=== PATIENT | female | born 1940 | race Caucasian/White ===

== ENCOUNTER → 2023-11-11 10:27 | Outpatient (REF) | payer OTHER, SELFPAY ==
[2023-11-11 12:15] LABS: % Basophils 0.8 % (0-2); % Eosinophils 1.7 % (0-6); % Immature Granulocytes 0.3 % (0-0.5); % Lymphocytes 27.2 % (20.5-51.1); % Monocytes 9.6 % (1.7-9.3); % Neutrophils 60.4 % (42.2-75.2); Absolute Basophils 0.1 10^3/uL (0-0.2); Absolute Eosinophils 0.1 10^3/uL (0-0.7); Absolute Lymphocytes 2.1 10^3/uL (1.2-3.4); Absolute Monocytes 0.7 10^3/uL (0.1-0.6); Absolute Neutrophils 4.7 10^3/uL (1.4-6.5); Hematocrit 37.9 % (37.0-47.0); Hemoglobin 12.7 g/dL (12.0-16.0); Mean Corp Hgb Conc. 33.5 g/dL (33.0-37.0); Mean Corpuscular Volume 89.4 fL (81.0-99.0); Nucleated Red Blood Cells % 0 %; Platelet Count 292 10^3/uL (130-400); Red Blood Cell Count 4.24 10^6/uL (4.20-5.40); White Blood Cell Count 7.7 10^3/uL (4.8-10.8)
[2023-11-11 12:46] LABS: ALT (SGPT) 40 U/L (0-35); AST (SGOT) 37 U/L (14-36); Albumin 3.8 g/dl (3.5-5.0); Alkaline Phosphatase 159 U/L (38-126); Blood Urea Nitrogen 14 mg/dl (7-17); Calcium 9.5 mg/dl (8.4-10.2); Carbon Dioxide 28 mmol/L (22-30); Chloride 105 mmol/L (98-107); Glucose 88 mg/dl (70-99); HDL Cholesterol 65 mg/dl; Iron 77 ug/dl (37-170); LDL Cholesterol, Calculated 71 mg/dl; Potassium 4.4 mmol/L (3.5-5.1); Sodium 137 mmol/L (135-145); Total Cholesterol 170 mg/dl (50-199); Total Protein 6.8 g/dl (6.3-8.2); Triglyceride 172 mg/dl (10-149); Very Low Density Lipoprotein 34 mg/dl (0-30); eGFR > 60.00
[2023-11-11 12:55] LABS: Percent Saturation 25 % (20-50); Total Iron Binding Capacity 301 ug/dl (265-497)
[2023-11-11 13:02] LABS: Vitamin D, 25-OH*** 63.2 ng/mL (30-80)
[2023-11-11 13:15] LABS: TSH Reflex To Free T4 0.65 uIU/ml (0.47-4.68)
== END ==
LOC: HWLAB 10:27
PROVIDERS: ATTENDING PHYSICIAN Nurse Practitioner Family
DX: Z76.89 Persons encountering health services in other specified circumstances (principal); Z00.00 Encounter for general adult medical examination without abnormal findings; E56.9 Vitamin deficiency, unspecified; I10 Essential (primary) hypertension; E78.2 Mixed hyperlipidemia; K21.9 Gastro-esophageal reflux disease without esophagitis; M81.0 Age-related osteoporosis without current pathological fracture; Z87.81 Personal history of (healed) traumatic fracture; E66.9 Obesity, unspecified; Z86.2 Personal history of diseases of the blood and blood-forming organs and certain disorders involving the immune mechanism
CPT/HCPCS: 36415; 80053; 80061; 82306; 82728; 83540; 83550; 84443; 85025

== ENCOUNTER 2023-11-18 01:52 | Observation (INO) | payer OTHER, SELFPAY ==
[2023-11-17] VITALS (7 sets, daily range): BP systolic 93–182; BP diastolic 65–136; BMI 31.3
[2023-11-17 20:02] LABS: % Immature Granulocytes 0.2 % (0-0.5); % Lymphocytes 30.4 % (20.5-51.1); % Monocytes 10.9 % (1.7-9.3); % Neutrophils 55.5 % (42.2-75.2); Absolute Basophils 0.1 10^3/uL (0-0.2); Absolute Eosinophils 0.2 10^3/uL (0-0.7); Absolute Lymphocytes 2.5 10^3/uL (1.2-3.4); Absolute Monocytes 0.9 10^3/uL (0.1-0.6); Absolute Neutrophils 4.5 10^3/uL (1.4-6.5); Hemoglobin 12.6 g/dL (12.0-16.0); Mean Corp Hgb Conc. 34.1 g/dL (33.0-37.0); Mean Corpuscular Hgb 30.1 pg (27.0-31.0); Mean Corpuscular Volume 88.3 fL (81.0-99.0); Mean Platelet Volume 8.6 fL (7.4-10.4); Nucleated Red Blood Cells % 0 %; Platelet Count 303 10^3/uL (130-400); Red Blood Cell Count 4.19 10^6/uL (4.20-5.40); Red Cell Dist. Width 13.8 % (11.5-14.5); White Blood Cell Count 8.2 10^3/uL (4.8-10.8)
[2023-11-17 20:17] LABS: ALT (SGPT) 31 U/L (0-35); AST (SGOT) 31 U/L (14-36); Alkaline Phosphatase 160 U/L (38-126); Blood Urea Nitrogen 22 mg/dl (7-17); Calcium 9.6 mg/dl (8.4-10.2); Carbon Dioxide 27 mmol/L (22-30); Chloride 103 mmol/L (98-107); Glucose 101 mg/dl (70-99); Potassium 4.3 mmol/L (3.5-5.1); Sodium 137 mmol/L (135-145); Total Bilirubin 0.5 mg/dl (0.2-1.3); Total Protein 7.1 g/dl (6.3-8.2); eGFR > 60.00
[2023-11-17 20:26] LABS: Troponin I < 0.012 ng/ml
--- NOTE | 2023-11-17 22:00 | ED.GENMED ---
History of Present Illness
General
Chief Complaint: Dizziness
Source: patient
Exam Limitations: none
Time Seen by Provider: 11/17/23 21:57
Travel History
Have you had any contact with someone who has COVID-19?: No
Do you have any symptoms of coronavirus? Fever > 100 degrees, chills, cough, shortness of breath, sore throat, loss of taste or smell, muscle aches, or headache?: No
History of Present Illness
History of Present Illness:
This is a 83 year old female that comes in with c/o dizziness. States that when she awoke this morning and went to get up she felt like the room was spinning. States that she laid back down and fell back to sleep. Daughter states that she has been
sleepy today and did not get up until about 11:30am. Patient states that when she got up again she was still dizzy and she stayed dizzy all da6y. States that the room is spinning. States that this happened when she sat up in CT scan and when she
sait up in bed. Denies any fever, chills, chest pain, SOB, abd pain, nasuea, vomiting, diarrhea, headache, urinary burning.
Past History
Past History
ED Past Medical History: Cancer (Bladder CA), GERD, HTN, Hypercholesterolemia and Other (PE/DVT)
ED Past Surgical History: Orthopedic (Right rotator cuff, Right femur repair, ) and Tonsilectomy
Social History
Tobacco: Former smoker (1/2ppd)
Alcohol: None
Drug: None
Personal:
Living: with family
Review of Systems
Review of Systems
All Other Systems: ROS reviewed and negative except as documented in HPI and ROS
Constitutional: Reports no symptoms; Denies fever or chills
EENT: Reports no symptoms
Respiratory: Reports no symptoms; Denies cough or trouble breathing
Cardiac: Reports no symptoms; Denies chest pain
ABD/GI: Reports no symptoms; Denies abdominal pain, nausea, vomiting or diarrhea
: Reports no symptoms; Denies dysuria, frequency or urgency
Musculoskeletal: Reports no symptoms
Skin: Reports no symptoms
Neurological: Reports dizzy; Denies headache
Psychiatric: Reports no symptoms
Phy Exam
General Physical Exam
General Presentation: well appearing and no apparent distress
General age: appears stated age
General Skin: warm and dry
General Habitus: elderly
General Mental: alert
General Hydration: appears well hydrated
ENT Exam
ENT Exam: TM's normal, pharynx normal and neck supple
Eye Exam
Eye Exam: PERRL and EOMI
Cardiovascular Exam
Cardiovascular Exam: regular rate/rhythm, no edema, no murmur and normal peripheral pulses
Pulmonary Exam
Pulmonary Exam: lungs clear, no respiratory distress, no rales, chest non tender, no crackles, no rhonchi, no wheezing and no cough
Gastrointestinal Exam
Gastrointestinal Exam: normal bowel sounds, non tender, soft, no organomegaly, no pulsatile mass and non distended
NIH Stroke Score
Level of Consciousness: 0 - Alert
LOC questions: 0-Answers both correctly
LOC Commands: 0-Performs both correctly
Best Gaze: 0-Normal
Visual [place]: 0=Normal, no visual loss
Facial palsy: 0=Normal, symmetrical
Motor - Right Arm: 0=No drift 10 seconds
Motor - Left Arm: 0=No drift 10 seconds
Motor - Right Le-No drift 5 seconds
Motor - Left Le-No drift 5 seconds
Limb Ataxia: 0-Absent
Sensation: 0-Normal
Best Language: 0-No aphasia
Dysarthria: 0-Normal
Extinction and Inattention: 0-No abnormality
Total Score:: 0
Musculoskeletal Exam
Musculoskeletal Exam: no edema and other (Hand grasp and push pulls equal, Limited ROM on the right leg due to recent femur repair)
Skin Exam
Skin Exam: normal color, warm/dry, no rash and no petechia
Psychiatric Exam
Psychiatric Exam: normal mood/affect
Course
Orders/Labs/Results
Orders:
Orders
11/17/23 19:36
Electrocardiogram (*1) Urgent
Reason for Study: Fatigue / Weakness
11/17/23 19:37
EKG- Treatment ONCE
11/17/23 19:[address] [CT Head W/o Iv Contrast] Urgent
Comment:
Reason For Exam: dizziness weakness
11/17/23 19:52
Troponin I Urgent
11/17/23 19:53
CMP [Comprehensive Metabolic Panel] Urgent
Complete Blood Count/With Diff Urgent
11/17/23 22:25
0.9% Sodium Chloride 1000 ml [Nss] 1,000 ml IV BOLUS
Meclizine [Antivert] 25 mg PO NOW STA
11/17/23 22:29
Orthostatic VS- Treatment ONCE
11/17/23 23:19
COVID-19 Antigen Urgent
Source: Nasal Swab
Urinalysis Reflex To Culture Urgent
Date Specimen was Collected: 11/17/23
Time Specimen was Collected: 23:10
Urine Microscopic Reflex Cult Urgent
Urine Culture Urgent
LINDA Source: U
Specimen Description:
Date Specimen was Collected: 11/17/23
Time Specimen was Collected: 23:10
Abnormal Lab Results
11/17/23 11/17/23
19:53 23:19
RBC 4.19 L 10^6/uL
(4.20-5.40)
Absolute Monos (auto) 0.9 H 10^3/uL
(0.1-0.6)
Monocytes % 10.9 H %
(1.7-9.3)
BUN 22 H mg/dl
(7-17)
Glucose 101 H mg/dl
(70-99)
Alkaline Phosphatase 160 H U/L
(38-126)
Leukocyte Esterase Rfl 2+ A
(Negative)
Urine WBC (Reflex) 26-30 A /HPF
(0-5)
Urine Bacteria (Reflex) Moderate A
(Negative)
11/17/23 19:53
11/17/23 19:53
Dehydration. Glucose nonfasting Alk phos elevation. Troponin<0.012
Second Troponin <0.012, Urine contaminated. Would wait for culture to treat.
Vital Signs
Initial and Last Documented VS:
Initial Vital Signs
Temp Pulse Resp BP Pulse Ox
98.2 F 88 20 142/67 97
11/17/23 19:30 11/17/23 19:30 11/17/23 19:30 11/17/23 19:30 11/17/23 19:30
Last Documented Vital Signs
Temp Pulse Resp BP Pulse Ox
98.4 F 83 19 134/63 98
11/17/23 23:00 11/18/23 00:00 11/18/23 00:00 11/18/23 00:00 11/18/23 00:00
MDM/Problems Addressed
Differential Diagnosis Includes:
Vertigo, Dehydration, UTI
MDM/Problems Addressed:
This is a 83 year old female that comes in with c/o dizziness. States that she awoke this morning and went to sit up and was dizzy. states that she laid back down and went back to sleep. States that when she got up later she was still dizzy and has
been dizzy all day.
Will check labs, CT head, Urine, IV fluids and COVID.
Back into see patient and daughter. Patient was unable to do Orthostatics due to the dizziness. Will admit patient. Patient already has a healing fracture from a fall on the right leg. Will need further evaluation. Hospitalist notified.
Chronic conditions affecting care:
NA
Acute Exacerbation and/or Progression of Chronic Illness:
NA
*Radiology
Radiology exam reviewed: radiology read reviewed (CT head-No acute intracranial abnormalities. Findings compatible with diffuse cortical atrophy with nonspecific white matter changes as described. )
*Pulse Oximetry
Patient hypoxic: no
*EKG
Interpreted by ED Provider?: Yes
Heart Rate: 87
Rate: normal
Rhythm: sinus
[place]: left axis deviation
Interval: normal interval
QRS Pattern: normal QRS
Ischemia: no ischemia
*Critical Care Note
Total Time (30-74mins, 75-104mins- exclusive of procedures): Not Applicable
ED Attending Note
-
Portions of this chart may have been created with voice recognition software.� Occasional wrong word or��sound alike� substitutions may have occurred due to the inherent limitations of voice recognition software.
Discharge Plan
Departure
Patient Disposition: Admit
Date of Disposition: 11/18/23
Time of Disposition: 00:30
Admit to: Telemetry
Presentation/result/management discussed w/ accepting MD/DO: Hospitalist
Patient with high blood pressure during this ER visit?: Yes
Condition: Good
Covid-19: Not Applicable
Discharge Problem:
Dizziness
Prescriptions:
No Action
cholecalciferol (vitamin D3) [Vitamin D3] 25 mcg (1,000 unit) Tablet
50 mcg PO DAILY Qty: 0
famotidine 20 mg Tablet
20 mg PO HS Qty: 0
calcium citrate [Citracal] 200 mg (950 mg) Tablet
200 mg PO DAILY Qty: 0
Myrbetriq 25 mg Tablet Extended Release 24 Hr
25 mg PO DAILY Qty: 0
pravastatin 40 mg tablet
40 mg PO HS
multivitamin Tablet
1 tab PO DAILY
amlodipine 5 mg tablet
5 mg PO DAILY
Referrals:
Alejandra Miramontes CRNP [Family Provider] -
Interventions
Interventions:
*Risk Screen - Suicide Last Done: 11/17/23 19:30
*General Assessment Last Done: 11/17/23 19:30
*Neglect/Abuse Screening Last Done: 11/17/23 19:30
ED- Fall Risk Assessment Last Done: 11/17/23 19:30
*ED COVID-19 Vaccine History Last Done: 11/17/23 19:30
ED- Neurological Assessment Last Done: 11/17/23 23:14
ED- Cardiac Assessment Last Done: 11/17/23 23:14
ED Swallowing Screen Last Done: 11/17/23 22:35
[2023-11-17] MEDS: NSS 1000 IV (22:30)
[2023-11-17] MEDS: ANTIVERT 25 MG PO (22:37)
[2023-11-17 23:30] LABS: Urine Albumin Negative (Neg - Trace); Urine Bilirubin Negative (Negative); Urine Character Clear (Clear); Urine Color Yellow; Urine Glucose Negative (Negative); Urine Ketone Negative (Negative); Urine Leukocyte 2+ (Negative); Urine Nitrite Negative (Negative); Urine Occult Blood Negative (Negative); Urine Urobilinogen Negative (Neg - 1+)
[2023-11-17 23:35] LABS: COVID-19 Antigen Negative (Negative)
[2023-11-17 23:56] LABS: Urine Squamous Cell >30 /LPF (Few)
[2023-11-17 23:58] LABS: Urine Bacteria Moderate (Negative); Urine Red Blood Cell 0-2 /HPF (0-2); Urine White Cell 26-30 /HPF (0-5)
[2023-11-18] VITALS (12 sets, daily range): BP systolic 114–163; BP diastolic 51–76; PULSE 78–81; O2SAT 95; BMI 32.3; BMI 31.1
--- NOTE | 2023-11-18 00:50 | HPS.HSE ---
Family Physician
-
Family Physician: RACHEL Ordoñez
Chief Complaint
-
Dizziness
History of Present Illness
83-year-old female who recently moved to be with her daughter, with history of some mild GERD, hypertension and recent right hip fracture status post ORIF. Presented to the hospital for evaluation of dizziness and vertigo, she states she woke up
this morning was extremely dizzy with any kind of movement activities, no weakness or numbness in extremities.
No headache or vision change.
No sick contacts or recent travel. No known medication change. Laying flat or sitting down resolved her symptoms, admit nausea but no vomiting.
She provide limited information but daughter at the bedside provide most of the information. Denies any weakness or numbness in extremities, no chest pain or palpitation or any vomiting.
Look like she was just discharged from home PT OT after hip fracture.
She has been having some urinary incontinent and look like start on mirabegron recently. Workup in the ER so far negative other than evidence of urinary tract infection.
Given meclizine in the ER.
Medical History
Past Medical History
Past Medical History: Reports Other
Additional Past Medical History:
Past medical history Reviewed:
Hypertension
Hyperactive bladder
GERD
Recent ORIF right hip
Social history: Ex-smoker, no alcohol use, ambulates with a walker.
Family history: Reviewed and noncontributory
Past Surgical History: Reports Other
Social History
Unable to obtain full social history at this time due to: Other
Family History
Family History: Other
Allergies / Home Medications
Allergies reflects when Allergies were last updated in [facility] [employer] [employer].
Home Medications with original date entered in [employer] [facility] [facility]
Allergy/Medication List:
Allergies
Allergy/AdvReac Type Severity Reaction Status Date / Time
morphine Allergy Hives Verified 11/17/23 19:29
Sulfa (Sulfonamide Allergy Rash Verified 11/17/23 19:29
Antibiotics)
Home Medications
calcium citrate 200 mg (950 mg) tablet 200 mg PO DAILY Supplement ##0 09/08/23
cholecalciferol (vitamin D3) 25 mcg (1,000 unit) tablet (Vitamin D3) 50 mcg PO DAILY Supplement ##0 09/08/23
famotidine 20 mg tablet 20 mg PO HS ##0 09/08/23
mirabegron 25 mg tablet,extended release 24 hr (Myrbetriq) 25 mg PO DAILY Urinary Issue ##0 09/08/23
amlodipine 5 mg tablet 5 mg PO DAILY 11/17/23
multivitamin 1 tab PO DAILY 11/17/23
pravastatin 40 mg tablet 40 mg PO HS 11/17/23
Review of Systems
-
A 12 point ROS was completed and negative except as noted: Yes
Physical Exam
Vital Signs
Vital Signs
Temp Pulse Resp BP Pulse Ox
98.4 F 83 19 134/63 98
11/17/23 23:00 11/18/23 00:00 11/18/23 00:00 11/18/23 00:00 11/18/23 00:00
Physical exam:
General: Awake, alert and oriented x3, not in distress and holds appropriate conversation.
HEENT: No active discharge, ecchymosis or bruising, moist lips, tongue and mucous membrane.
Eyes: No discharge or red conjunctiva, no nystagmus, pupils are reactive and equal
Neck:Supple, no JVD no bruit no goiter.
Respiratory: Normal AP contour and diameter, normal chest wall movement, normal respiratory effort, no respiratory distress,
Lungs: Good air entry bilaterally, no wheezing or rhonchi, no rales or crackles
Heart: S1, S2 regular, normal rate, no added sound.
Gastrointestinal: Positive bowel sounds, soft, nontender, no guarding or rigidity or organomegaly
Musculoskeletal: , no chest wall abnormality or tenderness. All joints and extremities have good range of motion, no muscle tenderness or any joint swelling or tenderness.
Extremities: No pitting edema, good peripheral pulses, good range of motion
Skin: Warm and dry, no ulceration, normal color.
Neurological: Awake, alert and oriented x3, cranial nerve II-XII grossly intact, speech clear and comprehensive, good muscle tone, normal sensory and motor function in the left extremity, right upper extremities motor and sensation intact, right
lower extremity abnormal sensation but limited movement because of the recent hip fracture and surgery., speech clear and comprehensive, extraocular muscle movement intact, visual acuity and dennison intact, no nystagmus,
Psychiatric: Normal mood, normal thought and judgment, normal affect,
Physical Exam
General: Other
Laboratory Results
-
11/17/23 19:53
11/17/23 19:53
Laboratory Results
Total Bilirubin 0.5 mg/dl (0.2-1.3) 11/17/23 19:53
AST 31 U/L (14-36) 11/17/23 19:53
ALT 31 U/L (0-35) 11/17/23 19:53
Alkaline Phosphatase 160 U/L (38-126) H 11/17/23 19:53
Troponin I < 0.012 ng/ml 11/17/23 19:52
CT brain:
No acute intracranial abnormalities.
Findings compatible with diffuse cortical atrophy with nonspecific white matter changes as described above.
EKG: Showed normal sinus rhythm rate around 97, SD 134, QTc 433 otherwise normal EKG normal axis
Data Reviewed
-
Diagnostic Radiology: Image Personally Visualized and interpreted, Discussed with Patient and Discussed with Family
Medical Tests (Nuc Med, Echo, EKG etc): Image Personally Visualized and interpreted, Discussed with Patient and Discussed with Family
Lab Data: Labs Reviewed by me and Discussed with Family
Old Records: Reviewed
Impression/Plan
-
IMPRESSION:
83-year-old female brought to the hospital for evaluation of dizziness, can concerning for peripheral benign positional vertigo while other causes like TIA or stroke or cardiac arrhythmia or posterior circulation insufficiency may need to be
considered also UTI could be another culprit.
Dizziness and vertigo, concerning for benign positional vertigo
TIA or stroke made considered to be ruled out
Cardiac arrhythmia could be a possibility
Posterior circulation deficiency could be a possibility
UTI
Mild cognitive decline
GERD
Hypertension
Dyslipidemia
Recent right hip fracture
PLAN:
Data:
MRI and MRA head and neck
Add aspirin
Statin
Hold amlodipine as a pressure on the low normal side to keep trying to rule out a stroke
PT OT, PT for vestibular
IV fluid
Check lipid panel, A1c
IV Rocephin could be de-escalated pending culture and sensitivity
All discussed with the patient and her daughter and expressed understanding
CODE STATUS full code
DVT prophylaxis Lovenox
[2023-11-18] MEDS: NSS 1000 IV (02:37)
[2023-11-18] MEDS: PEPCID 20 MG PO ×2 (02:38→21:27)
[2023-11-18] MEDS: ROCEPHIN 1000 MG IV ×2 (02:38→21:27)
[2023-11-18] MEDS: STERILE WATER FOR INJECTION 10 ML IV ×2 (02:49→21:28)
[2023-11-18 06:03] LABS: Blood Urea Nitrogen 16 mg/dl (7-17); Calcium 9.3 mg/dl (8.4-10.2); Carbon Dioxide 27 mmol/L (22-30); Chloride 108 mmol/L (98-107); Estimated Creatinine Clearance 68 ml/min; Glucose 98 mg/dl (70-99); HDL Cholesterol 66 mg/dl; LDL Cholesterol, Calculated 73 mg/dl; Magnesium 2.1 mg/dl (1.6-2.3); Potassium 4.2 mmol/L (3.5-5.1); Sodium 141 mmol/L (135-145); Total Cholesterol 161 mg/dl (50-199); Triglyceride 112 mg/dl (10-149); Very Low Density Lipoprotein 22 mg/dl (0-30); eGFR > 60.00
[2023-11-18] MEDS: LOW STRENGTH ASPIRIN 81 MG PO (08:06)
[2023-11-18 08:56] LABS: Glycohemoglobin (HgbA1c) 5.5 % (4.0-5.6)
[2023-11-18] MEDS: MYRBETRIQ EXTENDED RELEASE 25 MG PO (10:01)
--- NOTE | 2023-11-18 10:50 | CM ---
CM met with patient in room. HOWE letter given and explained.
CM confirmed demographics. Patient lives with daughter in a two story home. Patient has a history of VN after placement at [place], but she cannot remember the name of the agency. Patient relies on a cane and walker for ambulation. Patient is active
with her PCP. Patient uses [facility] for medication services.
CM will await PT recommendations for further discharge planning efforts.
PLAN: Pending PT eval.
--- NOTE | 2023-11-18 11:58 | PTOTSP ---
SPEECH THERAPY SWALLOW EVALUATION:
Patient presents with oropharyngeal swallow function grossly WFL at this time. However, patient remains at risk for aspiration given possible acute CVA (MRI pending) and suboptimal positioning secondary to dizziness. Recommend Regular texture diet,
thin liquids. Medications whole with liquid. Aspiration precautions: As upright as able/tolerated positioning; small sips/bites; slow rate of intake. ST to follow up x1, assess diet tolerance and modify as appropriate, provide education regarding
aspiration risks/precautions, and monitor MRI and complete full speech/language/cognitive communication evaluation if indicated.
RECOMMEND:
1) Regular texture diet, thin liquids
2) Medications whole with liquid
3) Aspiration precautions: As upright as able/tolerated positioning; small sips/bites; slow rate of intake
4) ST to follow up x1, assess diet tolerance and modify as appropriate, provide education regarding aspiration risks/precautions, and monitor MRI and complete full speech/language/cognitive communication evaluation if indicated
--- NOTE | 2023-11-18 12:00 | PTCARENOTE ---
Received pt from ER.Pt awake, alert and oriented x3. Pt c/o dizziness with movement, even turning in bed, no nausea or vomiting at this time. Pt VSS 95% on RA. Pt NSR on tele. In ER Pts NIH recorded as ). Right leg not tested due to right hip
fracture with surgery and known weakness. Pt able to move leg tested and does drift down to bed, score 2 based on Right leg being tested. Otherwise assessment unchanged. Pt oriented to room, call sullivan within reach, plan of care ongoing.
--- NOTE | 2023-11-18 13:25 | W.PN.UPDATE ---
Update Note
Progress Note Update
Admitted with new onset of vertigo.
Patient's remained symptomatic care with vertigo which gets precipitated with movement of her body-like sitting up or standing up.
No headache.
No limb weakness.
No tremors.
No spontaneous nystagmus noted at rest.
Ongoing evaluation-MRI of the brain pending. Started on antibiotics for symptomatic treatment. Consult PT.
Check orthostatic vital signs.
[2023-11-18] MEDS: ANTIVERT 25 MG PO ×2 (15:09→21:27)
[2023-11-18] MEDS: LOVENOX 40 MG SC (17:25)
[2023-11-18] MEDS: PRAVACHOL 40 MG PO (21:27)
[2023-11-19] VITALS (8 sets, daily range): BP systolic 121–162; BP diastolic 53–81; PULSE 73–81
[2023-11-19] MEDS: ANTIVERT 25 MG PO ×3 (06:17→21:09)
[2023-11-19] MEDS: LOW STRENGTH ASPIRIN 81 MG PO (09:23)
[2023-11-19] MEDS: MYRBETRIQ EXTENDED RELEASE 25 MG PO (09:23)
--- NOTE | 2023-11-19 11:06 | W.PN.HOSP.TC ---
Today's Communication/Plan
-
Follow MRI brain
Assessment / Plan
Assessment / Plan
IMPRESSION:
83-year-old female brought to the hospital for evaluation of vertigo
Dizziness and vertigo -acute onset. Significant symptoms when sitting up and standing but not at rest or with head movements. No spontaneous nystagmus. No past-pointing. No motor deficit. CT head is negative for acute findings. Concerned about
a central process. Await MRI of the brain. Continue with symptomatic treatments with Antivert. Patient could not participate with PT due to symptoms. Continue with aspirin for now.
Difficult to do orthostatics with her symptoms-lying and sitting readings this showed no drop in blood pressure. No extrarenal losses of fluid losses.
Positive UA but with lot of squamous cells noted raising suspicion for contamination. She is also asymptomatic without dysuria frequency. I doubt UTI. Hold on abx. DC abx.
Mild cognitive decline
GERD -cw home meds
Hypertension- cw home meds
Dyslipidemia-cw statins
Recent right hip fracture
CODE STATUS full code
DVT prophylaxis Lovenox
Anticipated Discharge: > 48 hours
Subjective/Interval History
-
Date of Service: November 19, 2023
Persistent vertigo when she tries to sit or stand. Not much with head movements. Not noticed when she is in the bed.
No new associated symptoms.
Objective Data
-
Vital Signs:
Vital Signs
Temp Pulse Resp BP Pulse Ox
98.2 F 73 18 135/66 96
11/19/23 08:58 11/19/23 08:58 11/19/23 08:58 11/19/23 08:58 11/19/23 08:58
I&O
11/18/23 11/19/23 11/20/23
06:59 06:59 06:59
Intake Total 1000 / 1000 720 / 720
Output Total 900 / 900
Balance 100 / 100 720 / 720
Review of Systems
-
Respiratory: Denies Trouble Breathing
Cardiac: Denies Chest Pain
Abdomen/GI: Denies Abdominal Pain, Nausea or Vomiting
Neuro: Reports Dizzy; Denies Headache
Physical Exam
-
General: No Apparent Distress
HEENT: Moist Mucous Membranes
Respiratory: Clear to Auscultation
Cardiac: Regular Rhythm and S1/S2
Neuro: AO x 3, No Motor Deficits and Other (No spontaneous nystagmus); Negative Tremors, Slurred Speech or Facial Droop
Psych: Calm; Negative Confused or Agitated
[2023-11-19] MEDS: NORVASC 5 MG PO (11:49)
--- NOTE | 2023-11-19 16:27 | CM ---
Patient seen bedside, discussed PT recommedation of SNF. Patient unsure if she would like to go to SNF, requesting call to daughter. Patient reports she has been to [facility] in past. CM will call patients daughter to discuss recommendations. CM
will continue to follow for discharge planning needs.
Plan; SNF pending accepting facility, will require insurance auth.
[2023-11-19] MEDS: LOVENOX 40 MG SC (17:07)
--- NOTE | 2023-11-19 17:51 | W.PN.ENT ---
Today's Communication
-
patient seen at bedside
Impression / Plan
-
Probable benign positional vertigo given history
Jeff Hallpike test negative possibly indicating early resolution
counselled patient to keep head elevated in bed, avoid lying on right side
I can see patient in office if problems recur
Subjective Data
-
asked to see patient for severe vertigo for 2 days
vertigo activated when turns to right side to situp
Objective Data
-
Vital Signs
Temp Pulse Resp BP Pulse Ox
98.7 F 76 16 149/76 97
11/19/23 15:37 11/19/23 15:37 11/19/23 15:37 11/19/23 15:37 11/19/23 11:10
Intake & Output
11/18/23 11/19/23 11/20/23
06:59 06:59 06:59
Intake:
Oral fluids 720 / 720 240 / 240
IV fluids (Total) 1000 / 1000
nss 1000 / 1000
Output:
Urine, Voided 900 / 900 250 / 250
Other:
Number of approximated MODERATE 3 3
amounts of urine
Number of approximated LARGE 3
amounts of urine
How many times incontinent 1
SATURATED amount urine
Lab Results
11/17/23 19:53
11/18/23 05:19
Calcium 9.3 mg/dl (8.4-10.2) 11/18/23 05:19
Magnesium 2.1 mg/dl (1.6-2.3) 11/18/23 05:19
Total Bilirubin 0.5 mg/dl (0.2-1.3) 11/17/23 19:53
AST 31 U/L (14-36) 11/17/23 19:53
ALT 31 U/L (0-35) 11/17/23 19:53
Alkaline Phosphatase 160 U/L (38-126) H 11/17/23 19:53
Triglycerides 112 mg/dl (10-149) 11/18/23 05:19
LDL Cholesterol, Calc 73 mg/dl 11/18/23 05:19
VLDL Cholesterol, Calc 22 mg/dl (0-30) 11/18/23 05:19
HDL Cholesterol 66 mg/dl 11/18/23 05:19
Urine Color Yellow 11/17/23 23:19
Urine Clarity Clear (Clear) 11/17/23 23:19
Urine pH 7.0 (5.0-9.0) 11/17/23 23:19
Ur Specific Kyle 1.010 (<1.030) 11/17/23 23:19
Urine Ketones Negative (Negative) 11/17/23 23:19
Physical Exam
-
[place] Hallpike test negative- no nystagmus
ears clear
Chest: Clear
Respiratory: Clear
Data Reviewed
-
Radiology Results: Report Reviewed
[2023-11-19] MEDS: PEPCID 20 MG PO (19:27)
--- NOTE | 2023-11-19 19:37 | CON.MD ---
Consultation - Medical
-
Chief complaint: Vertigo
History of present illness: This patient is an 83-year-old woman who presents with a 2-day history of vertigo that she notes particularly when she sits up and when she rolls onto her right side initially to sit up. She has not noted significant
change in her hearing. She has not had head trauma recently. She is not having problems currently lying down. She has no ear pain or drainage from the ears. She had an MRI scan which showed normal mastoid cavities. There is no significant
evidence of sinusitis.
Past medical history:
Chronic illnesses:
Fracture of right hip, dizziness, hypercholesterolemia, acid reflux, osteoporosis, hypertension
Allergies: Morphine causes hives, sulfa medications caused a rash
Home medications: Amlodipine 5 mg p.o. daily
Calcium citrate 200 mg p.o. daily
Cholecalciferol 50 mcg p.o. daily
Famotidine 20 mg p.o. daily
Myrbetriq 25 mg p.o. daily
Multivitamin 1 p.o. daily
Pravastatin 40 mg p.o. nightly
Hospitalizations: The patient is currently hospitalized for vertigo and was recently hospitalized for a right hip fracture
Family history: Asked and is noncontributory for this problem
Past surgical history: The patient recently underwent repair of a right hip fracture
Review of systems: Positive for vertigo, positive for healing hip fracture, negative for chest pain, negative for abdominal pain, negative for respiratory distress, negative for change in hearingPhysical examination:
Head: Atraumatic and normocephalic
Eyes: Extraocular movements are intact and pupils are equal and reactive to light, no nystagmus was seen:
Ears: No significant cerumen impactions, fluid or infection
Nose: Normal mucosa
Mouth: Normal mucosa without signs of infection
Cranial nerves: 2 through 12 are intact
Voice: Normal tone and pitch, normal volume
Thyroid gland: Normal to palpation
Salivary glands: Normal to palpation
Neck: Supple without adenopathy
Vestibular: The Jeff-Hallpike maneuver was negative with her head down and to the right as well as with her head down and to the left. No rotary nystagmus was seen
Impression/plan: This 83-year-old woman has recently experienced problems with benign positional vertigo. Her history is very convincing. Her [place]-Hallpike test was negative indicating that her problem is likely going to resolve fairly quickly. I
suggested that she keep her head elevated in bed is much as possible and act as if she has a stiff neck to avoid sharp head motions. If she has further problems with her vertigo I can see her back in the office. I will see her back as needed.
[2023-11-19] MEDS: TUMS 2 TABLET PO (20:51)
[2023-11-19] MEDS: PRAVACHOL 40 MG PO (20:52)
[2023-11-20] VITALS (8 sets, daily range): BP systolic 119–156; BP diastolic 60–78; PULSE 79–104; O2SAT 94
[2023-11-20] MEDS: ANTIVERT 25 MG PO ×3 (05:05→21:25)
[2023-11-20] MEDS: MYRBETRIQ EXTENDED RELEASE 25 MG PO (08:59)
[2023-11-20] MEDS: LOW STRENGTH ASPIRIN 81 MG PO (08:59)
[2023-11-20] MEDS: NORVASC 5 MG PO (08:59)
--- NOTE | 2023-11-20 09:03 | W.PN.HOSP.TC ---
Today's Communication/Plan
-
see plan above
Assessment / Plan
Assessment / Plan
IMPRESSION:
83-year-old female brought to the hospital for evaluation of vertigo
Dizziness and vertigo -acute onset. Significant symptoms when sitting up and standing but not at rest or with head movements. No spontaneous nystagmus. No past-pointing. No motor deficit. CT head is negative for acute findings. MRI of the
brain negative for acute infarct. MRI of the head shows no significant stenosis. NoW clinical concern is of peripheral vertigo. Appreciate ENT input. Recommend continued symptomatic treatment and vestibular therapy. Concern is of BPPV. Await
PT input from today. DC planning based on the PT recommendations. Follow-up with the ENT as an outpatient.. DC aspirin
Positive UA but with lot of squamous cells noted raising suspicion for contamination. She is also asymptomatic without dysuria frequency. I doubt UTI. Hold on abx. DC abx.
Mild cognitive decline
GERD -cw home meds
Hypertension- cw home meds
Dyslipidemia-cw statins
Recent right hip fracture
CODE STATUS full code
DVT prophylaxis Lovenox
Anticipated Discharge: 24 - 48 hours
Subjective/Interval History
-
Date of Service: November 20, 2023
Patient just awoke up, has not gotten out of the bed so do not know if she is symptomatic. At rest in bed no vertigo.
No nausea. Tolerating diet.
No new symptoms.
Objective Data
-
Vital Signs:
Vital Signs
Temp Pulse Resp BP Pulse Ox
98 F 75 18 125/72 94
11/20/23 07:00 11/20/23 07:00 11/20/23 07:00 11/20/23 07:00 11/20/23 07:00
I&O
11/19/23 11/20/23 11/21/23
06:59 06:59 06:59
Intake Total 720 / 720 240 / 240
Output Total 250 / 250
Balance 720 / 720 -10 / -10
Review of Systems
-
Constitutional: Denies Fever
Respiratory: Denies Trouble Breathing
Cardiac: Denies Chest Pain
Abdomen/GI: Denies Abdominal Pain
Physical Exam
-
General: No Apparent Distress
HEENT: Moist Mucous Membranes
Neuro: AO x 3 and No Motor Deficits; Negative Tremors, Slurred Speech or Facial Droop
Psych: Calm
[2023-11-20] MEDS: LOVENOX 40 MG SC (17:10)
--- NOTE | 2023-11-20 17:35 | CM ---
PT OT indicate SNF at dc.
Spoke with Katia dgt [phone] reviewed PT OT evals.
[facility] choices [facility] . All placed in care port.CM check responses.
Will need auth.
PLAN To SNF after located and auth
[2023-11-20] MEDS: PEPCID 20 MG PO (19:34)
[2023-11-20] MEDS: PRAVACHOL 40 MG PO (19:35)
[2023-11-21] VITALS (8 sets, daily range): BP systolic 107–155; BP diastolic 59–70; PULSE 78–80
[2023-11-21] MEDS: ANTIVERT 25 MG PO ×3 (06:13→21:55)
[2023-11-21] MEDS: MYRBETRIQ EXTENDED RELEASE 25 MG PO (09:01)
[2023-11-21] MEDS: NORVASC 5 MG PO (09:01)
--- NOTE | 2023-11-21 10:29 | W.PN.HOSP.TC ---
Today's Communication/Plan
-
DC after PT eval
Assessment / Plan
Assessment / Plan
IMPRESSION:
83-year-old female brought to the hospital for evaluation of vertigo
Dizziness and vertigo -acute onset. Significant symptoms when sitting up and standing but not at rest or with head movements. No spontaneous nystagmus. No past-pointing. No motor deficit. CT head is negative for acute findings. MRI of the
brain negative for acute infarct. MRI of the head shows no significant stenosis. clinical concern is of peripheral vertigo. Appreciate ENT input. Recommend continued symptomatic treatment and vestibular therapy. Concern is of BPPV. Improving
.CW PT - see eval today and if able to participate we will dc her to rehab which she and her daughter is agreeable . Follow-up with the ENT as an outpatient.. DC aspirin
Positive UA but with lot of squamous cells noted raising suspicion for contamination. She is also asymptomatic without dysuria frequency. I doubt UTI. Hold on abx. DC abx.
Mild cognitive decline
GERD -cw home meds
Hypertension- cw home meds
Dyslipidemia-cw statins
Recent right hip fracture
CODE STATUS full code
DVT prophylaxis Lovenox
Anticipated Discharge: Today
Subjective/Interval History
-
Date of Service: November 21, 2023
Patient is starting to feel improved. Able to sit at the edge of the bed and transfer to bedside commode easier. Not vertigous with transfers.
No new symptoms.
Objective Data
-
Vital Signs:
Vital Signs
Temp Pulse Resp BP Pulse Ox
98 F 73 18 131/62 92
11/21/23 08:27 11/21/23 08:27 11/21/23 08:27 11/21/23 08:27 11/21/23 09:06
I&O
11/20/23 11/21/23 11/22/23
06:59 06:59 06:59
Intake Total 240 / 240 1520 / 1520
Output Total 250 / 250
Balance -10 / -1519
Review of Systems
-
Constitutional: Denies Fever or Chills
EENT: Denies Sore Throat
Respiratory: Denies Cough or Trouble Breathing
Cardiac: Denies Chest Pain
Abdomen/GI: Denies Abdominal Pain, Nausea or Vomiting
Neuro: Reports Dizzy; Denies Headache
Physical Exam
-
General: Comfortable
Respiratory: Clear to Auscultation
Cardiac: Regular Rhythm and S1/S2
GI: Soft
Neuro: AO x 3, No Motor Deficits and Other (no nystagmus); Negative Tremors, Slurred Speech or Facial Droop
Psych: Calm; Negative Confused
--- NOTE | 2023-11-21 10:33 | W.DS.TRANS ---
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
-
Discharge Instructions:
Discharge Diagnosis/Procedures Acute peripheral vertigo-suspected BPPV
Diet Regular
Activity As tolerated
Driving Restrictions Not until seen by your Dr
Bathing Restrictions None
Other Services PT,OT
Instructions:
Stand-Alone Forms:
Changes to Home Medications: Yes
Discharge Medications:
DC Medications w/original date entered in [employer]
calcium citrate 200 mg (950 mg) tablet 200 mg PO DAILY Supplement ##0 09/08/23
cholecalciferol (vitamin D3) 25 mcg (1,000 unit) tablet (Vitamin D3) 50 mcg PO DAILY Supplement ##0 09/08/23
famotidine 20 mg tablet 20 mg PO HS Gastrointestinal Issue ##0 09/08/23
mirabegron 25 mg tablet,extended release 24 hr (Myrbetriq) 25 mg PO DAILY Urinary Issue ##0 09/08/23
amlodipine 5 mg tablet 5 mg PO DAILY Blood Pressure 11/17/23
multivitamin 1 tab PO DAILY Supplement 11/17/23
pravastatin 40 mg tablet 40 mg PO HS High Cholesterol 11/17/23
meclizine 25 mg tablet 25 mg PO Q8H #1 tab 11/21/23
Home Medication Changes
New med -antivert
Pending Results: Yes
--- NOTE | 2023-11-21 13:35 | CM ---
Addendum entered by Hallie Spicer 11/21/23 15:50:
CM spoke with Riana from [facility], will have DON review clinicals, cannot accept over weekend but may have a spot for Friday. CM will touch base with Riana on Friday regarding bed availability. Per [facility], no beds available. CM waiting on
availability from [facility].
Original Note:
CM reviewed chart. CM reached out to SNF facilities, awaiting response to determine accepting facility, patient will require auth. CM will continue to follow for discharge planning needs.
Plan; SNF pending accepting facility, will require auth, awaiting response from facilities in regards to bed availability.
--- NOTE | 2023-11-21 16:31 | PTCARENOTE ---
Pt AAO x3, PUENTES; has decreased ROM RLE d/t recent hip fx; OOB to chair/BSC with assist x1/walker,codie well. VSS. On room air- pulse ox 96%, no c/o SOB. Abd large, soft, codie PO well. Voids on BSC without difficulty. Resting in bed at present, no
c/o. Will continue to monitor.
[2023-11-21] MEDS: LOVENOX 40 MG SC (17:37)
[2023-11-21] MEDS: TUMS 2 TABLET PO (18:01)
[2023-11-21] MEDS: PRAVACHOL 40 MG PO (19:52)
[2023-11-21] MEDS: PEPCID 20 MG PO (19:52)
[2023-11-22] MEDS: ANTIVERT 25 MG PO ×3 (04:52→23:42)
[2023-11-22 07:58] VITALS: BP 135/59
[2023-11-22] MEDS: NORVASC 5 MG PO (09:02)
[2023-11-22] MEDS: MYRBETRIQ EXTENDED RELEASE 25 MG PO (09:03)
[2023-11-22 09:05] VITALS: BP 129/64; BP 99/64; PULSE 73; O2SAT 95
--- NOTE | 2023-11-22 11:19 | W.PN.HOSP.TC ---
Today's Communication/Plan
-
DC when bed available in Rehab.
Assessment / Plan
Assessment / Plan
IMPRESSION:
83-year-old female brought to the hospital for evaluation of vertigo
Dizziness and vertigo -acute onset. Significant symptoms when sitting up and standing but not at rest or with head movements. No spontaneous nystagmus. No past-pointing. No motor deficit. CT head is negative for acute findings. MRI of the
brain negative for acute infarct. MRI of the head shows no significant stenosis. clinical concern is of peripheral vertigo. Appreciate ENT input. Recommend continued symptomatic treatment and vestibular therapy. Concern is of BPPV. Improving
.CW PT -now able to participate with PT and improving but rehab recommended.
Positive UA but with lot of squamous cells noted raising suspicion for contamination. She is also asymptomatic without dysuria frequency. I doubt UTI. Hold on abx. DC abx.
Mild cognitive decline
GERD -cw home meds
Hypertension- cw home meds
Dyslipidemia-cw statins
Recent right hip fracture
Medically stable for discharge to rehab
Discussed with case management - no bed available yet
CODE STATUS full code
DVT prophylaxis Lovenox
Anticipated Discharge: Today
Subjective/Interval History
-
Date of Service: November 22, 2023
Continued improvement with the dizziness/vertigo. Able to participate with PT but requires rehab
Objective Data
-
Vital Signs:
Vital Signs
Temp Pulse Resp BP Pulse Ox
97.9 F 76 14 135/59 96
11/22/23 07:58 11/22/23 07:58 11/22/23 07:58 11/22/23 07:58 11/22/23 08:40
I&O
11/21/23 11/22/23 11/23/23
06:59 06:59 07:59
Intake Total 1520 / 1520 900 / 900
Balance 1520 / 1520 900 / 900
Review of Systems
-
Constitutional: Denies Fever
Respiratory: Denies Trouble Breathing
Cardiac: Denies Chest Pain
Abdomen/GI: Denies Nausea or Vomiting
Physical Exam
-
General: No Apparent Distress
HEENT: Moist Mucous Membranes
Respiratory: Clear to Auscultation
Cardiac: Regular Rhythm and S1/S2
Neuro: AO x 3 and No Motor Deficits; Negative Tremors
Psych: Calm; Negative Confused or Agitated
[2023-11-22 11:55] VITALS: BP 129/57
[2023-11-22] MEDS: TUMS 2 TABLET PO ×2 (14:56→19:20)
[2023-11-22 15:18] VITALS: BP 131/62
[2023-11-22] MEDS: LOVENOX 40 MG SC (17:20)
[2023-11-22] MEDS: PRAVACHOL 40 MG PO (19:20)
[2023-11-22] MEDS: PEPCID 20 MG PO (19:20)
[2023-11-22 23:20] VITALS: BP 133/79
[2023-11-23] MEDS: ANTIVERT 25 MG PO ×2 (06:41→21:32)
[2023-11-23 07:31] VITALS: BP 126/74
[2023-11-23] MEDS: MYRBETRIQ EXTENDED RELEASE 25 MG PO (09:06)
[2023-11-23] MEDS: NORVASC 5 MG PO (09:06)
--- NOTE | 2023-11-23 09:58 | W.PN.HOSP.TC ---
Today's Communication/Plan
-
DC
Assessment / Plan
Assessment / Plan
IMPRESSION:
83-year-old female brought to the hospital for evaluation of vertigo
Dizziness and vertigo -acute onset. Significant symptoms when sitting up and standing but not at rest or with head movements. No spontaneous nystagmus. No past-pointing. No motor deficit. CT head is negative for acute findings. MRI of the
brain negative for acute infarct. MRI of the head shows no significant stenosis. clinical concern is of peripheral vertigo. Appreciate ENT input. Recommend continued symptomatic treatment and vestibular therapy. Concern is of BPPV. Improving
.CW PT -now able to participate with PT and improving but rehab recommended.
Positive UA but with lot of squamous cells noted raising suspicion for contamination. She is also asymptomatic without dysuria frequency. I doubt UTI. Hold on abx. DC abx.
Mild cognitive decline
GERD -cw home meds
Hypertension- cw home meds
Dyslipidemia-cw statins
Recent right hip fracture
Remains medically stable for discharge to rehab
Discussed with case management 11/21 - no bed available yet
CODE STATUS full code
DVT prophylaxis Lovenox
Anticipated Discharge: Within 24 hours
Subjective/Interval History
-
Date of Service: November 23, 2023
Continued slow improvement in mental status. Await placement. No new symptoms.
Objective Data
-
Vital Signs:
Vital Signs
Temp Pulse Resp BP Pulse Ox
97.5 F 71 16 126/74 93
11/23/23 07:31 11/23/23 07:31 11/23/23 07:31 11/23/23 07:31 11/23/23 07:31
I&O
11/22/23 11/23/23 11/24/23
05:59 06:59 06:59
Intake Total
Balance
Review of Systems
-
Constitutional: Denies Fever
Respiratory: Denies Trouble Breathing
Cardiac: Denies Chest Pain
Physical Exam
-
General: No Apparent Distress
HEENT: Moist Mucous Membranes
Respiratory: Clear to Auscultation
Cardiac: Regular Rhythm and S1/S2
GI: Soft
Neuro: AO x 3
Psych: Calm
[2023-11-23 10:26] VITALS: BP 132/86; BP 138/77; BP 140/69; PULSE 77; PULSE 81; PULSE 97
[2023-11-23] MEDS: TUMS 2 TABLET PO ×2 (14:36→21:32)
[2023-11-23 16:40] VITALS: BP 130/65
[2023-11-23] MEDS: LOVENOX 40 MG SC (17:22)
[2023-11-23 20:00] VITALS: BP 136/57
[2023-11-23] MEDS: PRAVACHOL 40 MG PO (21:32)
[2023-11-23] MEDS: PEPCID 20 MG PO (21:32)
[2023-11-23 23:27] VITALS: BP 130/60
[2023-11-24 07:25] VITALS: BP 120/67
--- NOTE | 2023-11-24 09:06 | W.PN.HOSP.TC ---
Today's Communication/Plan
-
medically stable for DC To SNF pending bed. CM aware.
Assessment / Plan
Assessment / Plan
Assessment with plan:
Dizziness and vertigo
- ENT evaluated, negative [place]-hallpike. Likely BPPV
- continue PT/OT with vestibular therapy. SNF at discharge pending.
- continue PRN meclizine.
- CT and MRI brain negative
Positive UTI - asymptomatic. Observing off Abx.
Mild cognitive decline
GERD - continue pepcid
Essential Hypertension - continue amlodipine
Dyslipidemia - continue statin
Recent right hip fracture in late August
DVT ppx: Lovenox
Code: Full
Dispo: medically stable for DC To SNF pending bed. CM aware.
Anticipated Discharge: Within 24 hours
Subjective/Interval History
-
Date of Service: November 24, 2023
reports vertigo is improving
denies any other complaints
awaiting placement
Objective Data
-
Vital Signs:
Vital Signs
Temp Pulse Resp BP Pulse Ox
98.1 F 74 16 130/60 95
11/23/23 23:27 11/23/23 23:27 11/23/23 23:27 11/23/23 23:27 11/23/23 23:27
I&O
11/23/23 11/24/23 11/25/23
06:59 06:59 06:59
Intake Total 660 / 660
Balance 660 / 660
Physical Exam
-
General: No Apparent Distress
HEENT: Normocephalic and Atraumatic
Respiratory: Negative Wheezes
Cardiac: Regular Rhythm and S1/S2
GI: Soft
Genito-urinary: No Costovertebral Tender
Neuro: AO x 3
Hematologic / Lymphatic: No Lymphadenopathy
Psych: Calm
Data Reviewed
-
Total Time Spent with Patient (in minutes): 42
Labs: Labs Reviewed by me
[2023-11-24] MEDS: NORVASC 5 MG PO (10:31)
[2023-11-24] MEDS: MYRBETRIQ EXTENDED RELEASE 25 MG PO (10:31)
[2023-11-24] MEDS: TUMS 2 TABLET PO (13:50)
--- NOTE | 2023-11-24 15:14 | CM ---
CM spoke with patients daughter, Katia, agreeable for patient to attend [facility]. Updated PT/OT, clinicals faxed to [facility], pending reference number #[id number]. CM will continue to follow for discharge planning needs.
Plan; SNF [facility] pending auth
[facility]
Report: [phone]
[2023-11-24 15:25] VITALS: BP 141/70
[2023-11-24] MEDS: LOVENOX 40 MG SC (18:42)
[2023-11-24] MEDS: PRAVACHOL 40 MG PO (20:36)
[2023-11-24] MEDS: PEPCID 20 MG PO (20:36)
[2023-11-24 23:20] VITALS: BP 118/52
[2023-11-25 07:55] VITALS: BP 122/57
--- NOTE | 2023-11-25 09:43 | CM ---
Addendum entered by Hallie Spicer 11/25/23 15:36:
CM received call from [employer], auth approved [id number] 11/24-12/07, next review 12/07 to nurse Anabella, phone [phone], fax [phone]. CM spoke with patients daughter Katia, provided number for wheel chair van transport ([phone]) $90. 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
time scheduled for 4:30 p.m. [facility] updated with auth and transport time. CM will continue to follow for discharge planning needs.
Plan;
Report: [phone]

Addendum entered by Hallie Spicer 11/25/23 14:16:
CM placed call to [employer] to check status, auth still pending. TT sent to [facility] to provide update. CM spoke with patients daughter, Katia, to update. Katia discussed as a back up plan, in case patient is denied rehab, to return home with
[facility]. Katia reports she is on the phone with [employer] currently inquiring about status. CM will provide update to daughter once auth status has been approved/denied. CM will continue to follow for discharge planning needs.
Addendum entered by Hallie Spicer 11/25/23 12:31:
CM spoke with [facility], auth still pending.
Original Note:
CM placed call to [employer] to check status of authorization, status still pending review at this time. CM will continue to follow for discharge planning needs.
Plan; [facility] SNF pending auth confirmation.
Report: [phone]
--- NOTE | 2023-11-25 09:53 | W.PN.HOSP.TC ---
Today's Communication/Plan
-
dc to SNF
Assessment / Plan
Assessment / Plan
Assessment with plan:
Dizziness and vertigo
- ENT evaluated, negative [place]-hallpike. Likely BPPV
- continue PT/OT with vestibular therapy. SNF at discharge pending.
- continue PRN meclizine.
- CT and MRI brain negative
Positive UTI - asymptomatic. Observing off Abx.
Mild cognitive decline
GERD - continue pepcid
Essential Hypertension - continue amlodipine
Dyslipidemia - continue statin
Recent right hip fracture in late August
DVT ppx: Lovenox
Code: Full
Dispo: medically stable for DC To SNF pending bed. CM aware.
More than 30 minutes spent in discharge including
Final examination of the patient
Summarizing hospital stay
Instructions for continuing care to all relevant caregivers
Preparation of discharge records, prescriptions, and referral forms
Total time spent (in minutes): 41
Anticipated Discharge: Today
Subjective/Interval History
-
Date of Service: November 25, 2023
vertigo symptoms continue to improve daily
no new complaints
Objective Data
-
Vital Signs:
Vital Signs
Temp Pulse Resp BP Pulse Ox
97.6 F 61 22 122/57 93
11/25/23 07:55 11/25/23 07:55 11/25/23 07:55 11/25/23 07:55 11/25/23 07:55
I&O
11/24/23 11/25/23 11/26/23
06:59 06:59 06:59
Intake Total 660 / 660 480 / 480
Output Total 400 / 400
Balance 660 / 660 80 / 80
Physical Exam
-
General: No Apparent Distress
HEENT: Normocephalic and Atraumatic
Respiratory: Negative Wheezes or Rales
Cardiac: Regular Rhythm and S1/S2
GI: Soft and Nontender
Musculoskeletal: No Edema
Neuro: AO x 3
Hematologic / Lymphatic: No Lymphadenopathy
Psych: Calm
Data Reviewed
-
Total Time Spent with Patient (in minutes): 41
Labs: Labs Reviewed by me
[2023-11-25] MEDS: NORVASC 5 MG PO (09:55)
[2023-11-25] MEDS: MYRBETRIQ EXTENDED RELEASE 25 MG PO (09:55)
--- NOTE | 2023-11-25 09:56 | W.DS.TRANS ---
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
-
Discharge Instructions:
Discharge Diagnosis/Procedures Acute peripheral vertigo-suspected BPPV
Diet Regular
Activity As tolerated
Driving Restrictions Not until seen by your Dr
Bathing Restrictions None
Other Services PT,OT
Instructions:
Stand-Alone Forms:
Changes to Home Medications: No
Discharge Medications:
DC Medications w/original date entered in [employer]
calcium citrate 200 mg (950 mg) tablet 200 mg PO DAILY Supplement ##0 09/08/23
cholecalciferol (vitamin D3) 25 mcg (1,000 unit) tablet (Vitamin D3) 50 mcg PO DAILY Supplement ##0 09/08/23
famotidine 20 mg tablet 20 mg PO HS Gastrointestinal Issue ##0 09/08/23
mirabegron 25 mg tablet,extended release 24 hr (Myrbetriq) 25 mg PO DAILY Urinary Issue ##0 09/08/23
amlodipine 5 mg tablet 5 mg PO DAILY Blood Pressure 11/17/23
multivitamin 1 tab PO DAILY Supplement 11/17/23
pravastatin 40 mg tablet 40 mg PO HS High Cholesterol 11/17/23
meclizine 25 mg tablet 25 mg PO Q8H #1 tab 11/21/23
Home Medication Changes
Pending Results: No
Total time spent discharging patient (in min): 41
[2023-11-25 15:30] VITALS: BP 136/62
[2023-11-25] MEDS: LOVENOX SC (17:03)
--- NOTE | 2023-11-25 17:24 | PTCARENOTE ---
Report called to [facility]. IV removed. Patient left with ambulatory services in wheelchair. Patient denies questions at this time. Vital signs stable.
== END 2023-11-25 17:33 ==
LOC: 4 EAST ACU 01:52
PROVIDERS: Clinical Nurse Specialist Family Health; Emergency Medicine; ADMITTING PHYSICIAN Internal Medicine; ATTENDING PHYSICIAN Internal Medicine; CONSULT PHYSICIAN Otolaryngology Facial Plastic Surgery; EMERGENCY PHYSICIAN Emergency Medicine; FAMILY PHYSICIAN Nurse Practitioner Family
DX: R42 Dizziness and giddiness (principal); K21.9 Gastro-esophageal reflux disease without esophagitis; I10 Essential (primary) hypertension; E78.00 Pure hypercholesterolemia, unspecified; R53.83 Other fatigue; N32.81 Overactive bladder; M81.0 Age-related osteoporosis without current pathological fracture; E78.5 Hyperlipidemia, unspecified; N39.0 Urinary tract infection, site not specified; R32 Unspecified urinary incontinence; S72.001D Fracture of unspecified part of neck of right femur, subsequent encounter for closed fracture with routine healing; X58.XXXD Exposure to other specified factors, subsequent encounter; Z85.51 Personal history of malignant neoplasm of bladder; Z86.718 Personal history of other venous thrombosis and embolism; Z87.891 Personal history of nicotine dependence; Z86.711 Personal history of pulmonary embolism; Z88.2 Allergy status to sulfonamides; Z88.5 Allergy status to narcotic agent; Z11.52 Encounter for screening for COVID-19
CPT/HCPCS: 70450; 70544; 70551; 80048; 80053; 80061; 81003; 81015; 83036; 83735; 84484; 85025; 87086; 87811; 92526; 92610; 93005; 96360; 97112; 97116; 97163; 97167; 97530; 97535; 99285; G0378

== ENCOUNTER 2023-12-15 16:09 | Emergency (ER) | payer OTHER, SELFPAY ==
[2023-12-15 16:12] VITALS: BP 158/82
[2023-12-15 16:32] LABS: % Basophils 0.7 % (0-2); % Immature Granulocytes 0.2 % (0-0.5); % Monocytes 10.5 % (1.7-9.3); % Neutrophils 61.6 % (42.2-75.2); Absolute Basophils 0.1 10^3/uL (0-0.2); Absolute Eosinophils 0.4 10^3/uL (0-0.7); Absolute Lymphocytes 1.9 10^3/uL (1.2-3.4); Absolute Monocytes 0.9 10^3/uL (0.1-0.6); Absolute Neutrophils 5.2 10^3/uL (1.4-6.5); Hematocrit 37.3 % (37.0-47.0); Hemoglobin 12.9 g/dL (12.0-16.0); Mean Corp Hgb Conc. 34.6 g/dL (33.0-37.0); Mean Corpuscular Hgb 29.5 pg (27.0-31.0); Mean Corpuscular Volume 85.2 fL (81.0-99.0); Mean Platelet Volume 8.6 fL (7.4-10.4); Nucleated Red Blood Cells % 0 %; Platelet Count 262 10^3/uL (130-400); Red Blood Cell Count 4.38 10^6/uL (4.20-5.40); Red Cell Dist. Width 13.5 % (11.5-14.5); White Blood Cell Count 8.4 10^3/uL (4.8-10.8)
[2023-12-15 17:30] LABS: ALT (SGPT) 30 U/L (0-35); AST (SGOT) 33 U/L (14-36); Alkaline Phosphatase 166 U/L (38-126); Blood Urea Nitrogen 16 mg/dl (7-17); Calcium 9.9 mg/dl (8.4-10.2); Carbon Dioxide 28 mmol/L (22-30); Chloride 106 mmol/L (98-107); Glucose 99 mg/dl (70-99); Potassium 4.3 mmol/L (3.5-5.1); Sodium 138 mmol/L (135-145); Total Bilirubin 0.7 mg/dl (0.2-1.3); Total Protein 7.1 g/dl (6.3-8.2); eGFR > 60.00
--- NOTE | 2023-12-15 18:48 | ED.GENMED ---
History of Present Illness
General
Chief Complaint: DVT/Possible Blood Clot
Source: patient and family
Time Seen by Provider: 12/15/23 18:07
Travel History
Have you had any contact with someone who has COVID-19?: No
Do you have any symptoms of coronavirus? Fever > 100 degrees, chills, cough, shortness of breath, sore throat, loss of taste or smell, muscle aches, or headache?: No
History of Present Illness
History of Present Illness:
83-year-old female presents here in the presence of her daughter after getting an outpatient ultrasound today consistent with a DVT in the right lower extremity. She has been reporting swelling of the right thigh area for the last day or 2, no
recent trauma or falls. She denies other symptoms such as numbness, tingling, new weakness, chest pain, shortness of breath, or other complaints. Patient had a history of DVT in 1969 at childbirth.
Past History
Past History
ED Past Medical History: Cancer (Bladder CA), GERD, HTN, Hypercholesterolemia and Other (PE/DVT)
ED Past Surgical History: Orthopedic (Right rotator cuff, Right femur repair, ) and Tonsilectomy
Social History
Tobacco: Former smoker (1/2ppd)
Alcohol: None
Drug: None
Personal:
Living: with family
Phy Exam
Physical Exam
Physical Exam:
GENERAL: Alert , in no apparent distress
EYE: pupils equal and reactive
NECK: Supple, no significant adenopathy.
ENT: o/p clr, mmm.
CARDIAC: Regular rate and rhythm .
LUNGS: Clear breath sounds bilaterally, no acute respiratory distress, no wheezes/rales/rhonchi
ABDOMEN: Soft, without focal tenderness, no r/g, no cvat
NEUROLOGICAL: Alert and oriented, no focal neuro deficits
SKIN: Warm and dry, skin intact.
MUSCULOSKELETAL: Mild right lower extremity edema particularly at thigh, well perfused, no discoloration, palpable 2+ DP/PT pulses bilaterally, no redness, no pallor, no cyanosis. Patient is slightly weaker on the right lower extremity which is
baseline for patient given recent fracture..
PSYCH: Normal and appropriate interaction.
Course
Orders/Labs/Results
Orders:
Orders
12/15/23 16:26
Complete Blood Count/With Diff Urgent
Comprehensive Metabolic Panel Urgent
12/15/23 18:35
Apixaban [Eliquis] 10 mg PO ONCE ONE
Apixaban [Eliquis] 10 mg PO ONCE STA
Abnormal Lab Results
12/15/23
16:26
Absolute Monos (auto) 0.9 H 10^3/uL
(0.1-0.6)
Monocytes % 10.5 H %
(1.7-9.3)
Alkaline Phosphatase 166 H U/L
(38-126)
12/15/23 16:26
12/15/23 16:26
Vital Signs
Initial and Last Documented VS:
Initial Vital Signs
Temp Pulse Resp BP Pulse Ox
98.1 F 84 18 158/82 96
12/15/23 16:12 12/15/23 16:12 12/15/23 16:12 12/15/23 16:12 12/15/23 16:12
Last Documented Vital Signs
Temp Pulse Resp BP Pulse Ox
98.1 F 84 18 158/82 96
12/15/23 16:12 12/15/23 16:12 12/15/23 16:12 12/15/23 16:12 12/15/23 16:12
*Critical Care Note
Total Time (30-74mins, 75-104mins- exclusive of procedures): Not Applicable
Update Note
Update Note:
Patient presents to the Emergency Department with right leg swelling
Number and Complexity of Problems Addressed at the Encounter
� Chronic conditions affecting care:
� Acute Exacerbation and/or Progression of Chronic Illness:
� Differential Diagnosis includes: But not limited to DVT, cellulitis, superficial thrombophlebitis, etc.
Amount and/or Complexity of Data to be Reviewed and Analyzed
� I performed an independent evaluation of and my interpretation is:
EKG:
CT:
Xrays:
Laboratory Studies:
Other: Ultrasound reviewed here, patient has DVT of peroneal, posterior tibial, and popliteal vein on the right
� Review of other/old records reveals:
� Clinical information was obtained by an independent historian: Daughter who is at bedside
� Prescriptions/Medications Considered but not given:
� Further testing considered but not performed:
Risk of Complications and/or Morbidity or Mortality of Patient Management
� Social determinants of health affecting care:
� Discussion with other providers (PCP, Hospitalists, Consultants, etc):
� Escalation of care including admission/observation vs risk of discharge considered: Long discussion with patient and daughter, aware of importance of close follow-up, precautions with medication, reasons to return to the
emergency department. I have a low clinical suspicion for PE given absence of associated symptoms or findings. Will start anticoagulation now, next a.m. dose given to patient, and she will hand picker the prescription tomorrow. Patient's who
was on the same insurance was on Eliquis in the past and insurance covered it, they do not anticipate any barriers for this however they understand that if they do they should contact her primary care doctor or return to the ER immediately. Case
discussed with Dr. Chau via [place] text, aware of above.
ED Attending Note
-
Portions of this chart may have been created with voice recognition software.� Occasional wrong word or��sound alike� substitutions may have occurred due to the inherent limitations of voice recognition software.
Discharge Plan
Departure
Patient Disposition: Home (Routine Discharge)
Date of Disposition: 12/15/23
Time of Disposition: 18:52
Patient with high blood pressure during this ER visit?: Yes
Condition: Good
Discharge Problem:
DVT (deep venous thrombosis)
Instructions: Deep Vein Thrombosis (Blood Clots in the Legs) (DC), BLOOD PRESSURE
Prescriptions:
New
Eliquis 5 mg tablet
10 mg PO DAILY Qty: 30 0RF
Rx Instructions:
Take 10mg BID for 6 days then followed by 5mg BID
No Action
cholecalciferol (vitamin D3) [Vitamin D3] 25 mcg (1,000 unit) Tablet
50 mcg PO DAILY Qty: 0
famotidine 20 mg Tablet
20 mg PO HS Qty: 0
calcium citrate 200 mg (950 mg) Tablet
200 mg PO DAILY Qty: 0
Myrbetriq 25 mg Tablet Extended Release 24 Hr
25 mg PO DAILY Qty: 0
pravastatin 40 mg tablet
40 mg PO HS
multivitamin Tablet
1 tab PO DAILY
amlodipine 5 mg tablet
5 mg PO DAILY
meclizine 25 mg Tablet
25 mg PO Q8H Qty: 1 0RF
Rx Instructions:
Can switch to as needed if continued improvement
Referrals:
Alejandra Miramontes CRNP [Family Provider] - Follow up in 2-3 days
Activity Restrictions/Additional Instructions:
IF YOU DEVELOP INCREASING OR NEW SWELLING, FEVER, CHILLS, VOMITING, CHEST PAIN, TROUBLE BREATHING, NUMBNESS, REDNESS/BLUEISH DISCOLORATION OF YOUR LEG, LEG PAIN, OR OTHER WORRISOME SIGNS, GO TOTHE ER IMMEDIATELY!
Interventions
Interventions:
ED- Cardiac Assessment Last Done: 12/15/23 18:06
ED- Pulmonary Assessment Last Done: 12/15/23 18:06
ED-Skin Assessment Last Done: 12/15/23 18:06
Discharge Date and Time
Print Language: BENINESE
[2023-12-15] MEDS: ELIQUIS 10 MG PO (19:01)
[2023-12-15 19:11] VITALS: BP 146/82
== END 2023-12-15 19:11 | disposition home or self-care (01) ==
LOC: EMR 16:09
PROVIDERS: Physician Assistant; EMERGENCY PHYSICIAN Emergency Medicine; FAMILY PHYSICIAN Nurse Practitioner Family
DX: I82.401 Acute embolism and thrombosis of unspecified deep veins of right lower extremity (principal); I10 Essential (primary) hypertension; Z86.718 Personal history of other venous thrombosis and embolism; Z87.891 Personal history of nicotine dependence
CPT/HCPCS: 99283; 71046; 80053; 85025; 93971

== ENCOUNTER → 2024-01-10 10:53 | Outpatient (REF) | payer OTHER, SELFPAY | LOC: RCS 10:53 | PROVIDERS: ATTENDING PHYSICIAN Nurse Practitioner Family | DX: R06.09 Other forms of dyspnea (principal); R60.0 Localized edema; Z87.891 Personal history of nicotine dependence | CPT/HCPCS: 93306 ==

== ENCOUNTER → 2024-02-19 08:02 | Outpatient (REF) | payer OTHER, SELFPAY ==
[2024-02-19 11:34] LABS: TSH Reflex To Free T4 1.18 uIU/ml (0.47-4.68)
[2024-02-19 11:50] LABS: Erythrocyte Sed Rate 31 mm/hour (0-20)
[2024-02-19 12:09] LABS: Folate > 20.0 ng/ml (2.76-20); Vitamin B12 620 pg/ml (239-931)
== END ==
LOC: HWLAB 08:02
PROVIDERS: ATTENDING PHYSICIAN Specialist; FAMILY PHYSICIAN Nurse Practitioner Family
DX: G93.41 Metabolic encephalopathy (principal)
CPT/HCPCS: 36415; 82607; 82746; 84443; 85652

== ENCOUNTER 2024-05-23 15:17 | Emergency (ER) | payer OTHER, SELFPAY ==
[2024-05-23 15:19] VITALS: BP 123/53
--- NOTE | 2024-05-23 15:52 | ED.GENMED ---
History of Present Illness
General
Chief Complaint: Fall
Time Seen by Provider: 05/23/24 15:23
History of Present Illness
History of Present Illness:
HPI: Was outside while using cane and fell; struck head on pavement. The patient is somewhat of a limited historian. Dizzy after fall. No LOC. Daughter states she is at her baseline mental status. No CP, no palpitations. Resolved VALENTINE.
EXAM:
GENERAL: Well appearing in no distress
HEENT: Moist oral mucosa
C-SPINE: No midline C-spine tenderness, normal active range of motion
CARDIOVASCULAR: No murmurs, normal heart rate, regular rhythm, No chest wall tenderness
PULMONARY: No respiratory distress, breath sounds are clear and equal
ABDOMEN: Soft with no peritoneal signs, no tenderness
NEUROLOGIC: Excellent strength all extremities, no coordination deficits
PSYCHIATRIC: Appropriate mental status other than some mild cognitive deficits
EXTREMITIES: Nontender, no edema, moves all extremities equally
SKIN: No rash, no lesions
TIME OF INITIAL ENCOUNTER: 4 PM
NUMBER AND COMPLEXITY OF PROBLEMS ADDRESSED AT THE ENCOUNTER
� Chronic conditions affecting care: DVT December 2023 after hip fracture on Eliis, mild cognitive impairment, high blood pressure, hyperlipidemia, urinary incontinence
� Acute Exacerbation and/or Progression of Chronic Illness: This is an acute problem
� Differential Diagnosis includes: Intracranial hemorrhage, electrolyte abnormality, anemia
AMOUNT AND/OR COMPLEXITY OF DATA TO BE REVIEWED AND ANALYZED
� I performed an independent evaluation of and my interpretation is:
EKG: Sinus 73, left axis deviation, no acute ST abnormality
CT: Brain CT unremarkable and personally reviewed
X-rays:
Laboratory Studies: CBC and chemistries relatively unremarkable, troponin unremarkable
Other:
� Review of other/old records: I reviewed records�the patient was placed on anticoagulation for DVT in December
� Clinical information was obtained by an independent historian: Spoke to daughter at bedside
� Prescriptions/Medications Considered but not given:
� Further testing considered but not performed:
RISK OF COMPLICATIONS AND/OR MORBIDITY OR MORTALITY OF PATIENT MANAGEMENT
� Social determinants of health affecting care: Lives at home
� Discussion with other providers:
� Escalation of care including admission/observation vs risk of discharge considered: The patient is well-appearing. She is on Eliquis with head injury but no evidence of bleeding. Basic labs also checked and were unremarkable.
Past History
Past History
ED Past Medical History: Cancer (Bladder CA), GERD, HTN, Hypercholesterolemia and Other (PE/DVT)
ED Past Surgical History: Orthopedic (Right rotator cuff, Right femur repair, ) and Tonsilectomy
Social History
Tobacco: Former smoker (1/2ppd)
Alcohol: None
Drug: None
Personal:
Living: with family
Phy Exam
Physical Exam
Physical Exam:
See HPI
Course
Orders/Labs/Results
Orders:
Orders
05/23/24 15:44
CT Head W/o Iv Contrast Urgent
Comment:
Reason For Exam: Fall
05/23/24 15:46
Electrocardiogram (*1) Urgent
Reason for Study: Other
Other Reason for Exam: Fall
EKG- Treatment ONCE
05/23/24 15:57
Complete Blood Count/With Diff Urgent
Comprehensive Metabolic Panel Urgent
Troponin I Urgent
Abnormal Lab Results
05/23/24
15:57
Hct 36.8 L %
(37.0-47.0)
Absolute Monos (auto) 0.7 H 10^3/uL
(0.1-0.6)
Monocytes % 11.0 H %
(1.7-9.3)
BUN 23 H mg/dl
(7-17)
Glucose 138 H mg/dl
(70-99)
05/23/24 15:57
05/23/24 15:57
Vital Signs
Initial and Last Documented VS:
Initial Vital Signs
Temp Pulse Resp BP Pulse Ox
97.8 F 79 18 123/53 97
05/23/24 15:19 05/23/24 15:19 05/23/24 15:19 05/23/24 15:19 05/23/24 15:19
Last Documented Vital Signs
Temp Pulse Resp BP Pulse Ox
97.8 F 77 18 143/57 92
05/23/24 15:19 05/23/24 18:26 05/23/24 18:26 05/23/24 18:26 05/23/24 18:26
*Critical Care Note
Total Time (30-74mins, 75-104mins- exclusive of procedures): Not Applicable
ED Attending Note
-
Portions of this chart may have been created with voice recognition software.� Occasional wrong word or��sound alike� substitutions may have occurred due to the inherent limitations of voice recognition software.
Discharge Plan
Departure
Patient Disposition: Home (Routine Discharge)
Date of Disposition: 05/23/24
Time of Disposition: 18:21
Patient with high blood pressure during this ER visit?: Yes
Discharge Problem:
Fall
Prescriptions:
No Action
cholecalciferol (vitamin D3) [Vitamin D3] 25 mcg (1,000 unit) Tablet
50 mcg PO DAILY Qty: 0
famotidine 20 mg Tablet
20 mg PO HS Qty: 0
calcium citrate 200 mg (950 mg) Tablet
200 mg PO DAILY Qty: 0
Myrbetriq 25 mg Tablet Extended Release 24 Hr
25 mg PO DAILY Qty: 0
pravastatin 40 mg tablet
40 mg PO HS
multivitamin Tablet
1 tab PO DAILY
amlodipine 5 mg tablet
5 mg PO DAILY
meclizine 25 mg Tablet
25 mg PO Q8H Qty: 1 0RF
Rx Instructions:
Can switch to as needed if continued improvement
Eliquis 5 mg tablet
10 mg PO DAILY Qty: 30 0RF
Rx Instructions:
Take 10mg BID for 6 days then followed by 5mg BID
Referrals:
Alejandra Miramontes CRNP [Family Provider] -
Activity Restrictions/Additional Instructions:
Basic blood work is unremarkable. Although the CAT scan suggests signs of a small infarct (stroke) since November, this does not necessarily appear anything we just recently happened. Follow-up your primary care doctor. There is no sign of bleeding
on the CT.
Interventions
Interventions:
*Risk Screen - Suicide Last Done: 05/23/24 15:22
*General Assessment Last Done: 05/23/24 15:22
*Neglect/Abuse Screening Last Done: 05/23/24 15:22
ED- Fall Risk Assessment Last Done: 05/23/24 18:35
*ED COVID-19 Vaccine History Last Done: 05/23/24 15:22
*Nursing Disposition Last Done: 05/23/24 18:35
ED-Musculoskeletal Assessment Last Done: 05/23/24 16:00
ED- Neurological Assessment Last Done: 05/23/24 16:00
ED-Skin Assessment Last Done: 05/23/24 16:00
Discharge Date and Time
Discharge Date/Time: 05/23/24 18:35
Print Language: PARAGUAYAN
[2024-05-23 16:05] LABS: % Eosinophils 2.5 % (0-6); % Immature Granulocytes 0.2 % (0-0.5); % Lymphocytes 29.2 % (20.5-51.1); % Neutrophils 56.1 % (42.2-75.2); Absolute Basophils 0.1 10^3/uL (0-0.2); Absolute Eosinophils 0.2 10^3/uL (0-0.7); Absolute Lymphocytes 1.8 10^3/uL (1.2-3.4); Absolute Monocytes 0.7 10^3/uL (0.1-0.6); Absolute Neutrophils 3.4 10^3/uL (1.4-6.5); Hematocrit 36.8 % (37.0-47.0); Hemoglobin 12.4 g/dL (12.0-16.0); Mean Corp Hgb Conc. 33.7 g/dL (33.0-37.0); Mean Corpuscular Hgb 29.5 pg (27.0-31.0); Mean Corpuscular Volume 87.4 fL (81.0-99.0); Mean Platelet Volume 9.6 fL (7.4-10.4); Nucleated Red Blood Cells % 0 %; Platelet Count 249 10^3/uL (130-400); Red Blood Cell Count 4.21 10^6/uL (4.20-5.40); Red Cell Dist. Width 13.6 % (11.5-14.5)
[2024-05-23 16:19] LABS: ALT (SGPT) 21 U/L (0-35); AST (SGOT) 34 U/L (14-36); Alkaline Phosphatase 78 U/L (38-126); Blood Urea Nitrogen 23 mg/dl (7-17); Calcium 9.8 mg/dl (8.4-10.2); Carbon Dioxide 29 mmol/L (22-30); Chloride 105 mmol/L (98-107); Glucose 138 mg/dl (70-99); Potassium 4.5 mmol/L (3.5-5.1); Sodium 143 mmol/L (135-145); Total Bilirubin 0.9 mg/dl (0.2-1.3); Total Protein 6.8 g/dl (6.3-8.2); eGFR > 60.00
[2024-05-23 16:26] LABS: Troponin I < 0.012 ng/ml
[2024-05-23 18:26] VITALS: BP 143/57
== END 2024-05-23 18:35 | disposition home or self-care (01) ==
LOC: EMR 15:17
PROVIDERS: Student in an Organized Health Care Education/Training Program; EMERGENCY PHYSICIAN Emergency Medicine; FAMILY PHYSICIAN Nurse Practitioner Family
DX: S09.90XA Unspecified injury of head, initial encounter (principal); W19.XXXA Unspecified fall, initial encounter; E78.00 Pure hypercholesterolemia, unspecified; I10 Essential (primary) hypertension; K21.9 Gastro-esophageal reflux disease without esophagitis; Z79.01 Long term (current) use of anticoagulants; Z85.51 Personal history of malignant neoplasm of bladder; Z86.718 Personal history of other venous thrombosis and embolism; Z87.891 Personal history of nicotine dependence
CPT/HCPCS: 99284; 70450; 80053; 84484; 85025; 93005

== ENCOUNTER → 2024-08-04 08:12 | Outpatient (REF) | payer OTHER, SELFPAY ==
[2024-08-04 09:39] LABS: % Basophils 0.9 % (0-2); % Eosinophils 5.8 % (0-6); % Immature Granulocytes 0.1 % (0-0.5); % Lymphocytes 30.3 % (20.5-51.1); % Monocytes 10.2 % (1.7-9.3); % Neutrophils 52.7 % (42.2-75.2); Absolute Basophils 0.1 10^3/uL (0-0.2); Absolute Eosinophils 0.4 10^3/uL (0-0.7); Absolute Lymphocytes 2.1 10^3/uL (1.2-3.4); Absolute Monocytes 0.7 10^3/uL (0.1-0.6); Absolute Neutrophils 3.7 10^3/uL (1.4-6.5); Hematocrit 41.6 % (37.0-47.0); Hemoglobin 13.5 g/dL (12.0-16.0); Mean Corp Hgb Conc. 32.5 g/dL (33.0-37.0); Mean Corpuscular Hgb 28.8 pg (27.0-31.0); Mean Corpuscular Volume 88.9 fL (81.0-99.0); Mean Platelet Volume 9.4 fL (7.4-10.4); Nucleated Red Blood Cells % 0 %; Platelet Count 303 10^3/uL (130-400); Red Blood Cell Count 4.68 10^6/uL (4.20-5.40); Red Cell Dist. Width 12.8 % (11.5-14.5)
[2024-08-04 09:54] LABS: ALT (SGPT) 24 U/L (0-35); AST (SGOT) 30 U/L (14-36); Albumin 4.2 g/dl (3.5-5.0); Alkaline Phosphatase 93 U/L (38-126); Blood Urea Nitrogen 17 mg/dl (7-17); Carbon Dioxide 28 mmol/L (22-30); Chloride 104 mmol/L (98-107); Glucose 102 mg/dl (70-99); Potassium 4.4 mmol/L (3.5-5.1); Sodium 144 mmol/L (135-145); Total Bilirubin 0.7 mg/dl (0.2-1.3); Total Protein 7.6 g/dl (6.3-8.2); eGFR > 60.00
[2024-08-04 10:14] LABS: TSH Reflex To Free T4 1.07 uIU/ml (0.47-4.68)
== END ==
LOC: HWLAB 08:12
PROVIDERS: ATTENDING PHYSICIAN Nurse Practitioner Family
DX: R19.5 Other fecal abnormalities (principal)
CPT/HCPCS: 36415; 80053; 84443; 85025

== ENCOUNTER → 2024-09-24 12:53 | Outpatient (REF) | payer OTHER, SELFPAY | LOC: RAD 12:53 | PROVIDERS: ATTENDING PHYSICIAN Nurse Practitioner Family | DX: I70.90 Unspecified atherosclerosis (principal); R09.89 Other specified symptoms and signs involving the circulatory and respiratory systems; Z86.718 Personal history of other venous thrombosis and embolism | CPT/HCPCS: 93922; 93925; 93970 ==

== ENCOUNTER → 2024-11-12 08:04 | Outpatient (REF) | payer OTHER, SELFPAY ==
[2024-11-12 10:30] LABS: Blood Urea Nitrogen 13 mg/dl (7-17); Calcium 9.6 mg/dl (8.4-10.2); Carbon Dioxide 29 mmol/L (22-30); Chloride 104 mmol/L (98-107); Glucose 95 mg/dl (70-99); Potassium 4.3 mmol/L (3.5-5.1); Sodium 141 mmol/L (135-145); eGFR > 60.00
== END ==
LOC: HWLAB 08:04
PROVIDERS: ATTENDING PHYSICIAN Nurse Practitioner Family
DX: I10 Essential (primary) hypertension (principal); E78.2 Mixed hyperlipidemia
CPT/HCPCS: 36415; 80048

== ENCOUNTER 2024-11-30 20:29 | Inpatient (IN) | payer OTHER, SELFPAY ==
[2024-11-30 15:45] VITALS: BP 110/97
[2024-11-30 16:10] LABS: % Basophils 0.8 % (0-2); % Eosinophils 1.3 % (0-6); % Immature Granulocytes 0.3 % (0-0.5); % Lymphocytes 15.6 % (20.5-51.1); % Monocytes 9.1 % (1.7-9.3); % Neutrophils 72.9 % (42.2-75.2); Absolute Basophils 0.1 10^3/uL (0-0.2); Absolute Eosinophils 0.1 10^3/uL (0-0.7); Absolute Lymphocytes 1.2 10^3/uL (1.2-3.4); Absolute Monocytes 0.7 10^3/uL (0.1-0.6); Absolute Neutrophils 5.8 10^3/uL (1.4-6.5); Hematocrit 40.4 % (37.0-47.0); Hemoglobin 13.6 g/dL (12.0-16.0); Mean Corp Hgb Conc. 33.7 g/dL (33.0-37.0); Mean Corpuscular Hgb 28.6 pg (27.0-31.0); Mean Corpuscular Volume 84.9 fL (81.0-99.0); Mean Platelet Volume 9.4 fL (7.4-10.4); Nucleated Red Blood Cells % 0 %; Platelet Count 227 10^3/uL (130-400); Red Blood Cell Count 4.76 10^6/uL (4.20-5.40); Red Cell Dist. Width 13.4 % (11.5-14.5)
[2024-11-30 16:27] LABS: COVID-19 Antigen Negative (Negative)
[2024-11-30 16:28] LABS: ALT (SGPT) 19 U/L (0-35); AST (SGOT) 27 U/L (14-36); Albumin 4.1 g/dl (3.5-5.0); Alkaline Phosphatase 116 U/L (38-126); Blood Urea Nitrogen 18 mg/dl (7-17); Calcium 9.6 mg/dl (8.4-10.2); Carbon Dioxide 26 mmol/L (22-30); Chloride 105 mmol/L (98-107); Glucose 138 mg/dl (70-99); Potassium 4.6 mmol/L (3.5-5.1); Sodium 139 mmol/L (135-145); Total Bilirubin 0.9 mg/dl (0.2-1.3); Total Protein 7.5 g/dl (6.3-8.2); eGFR > 60.00
[2024-11-30 16:37] LABS: NT-proBNP 352 pg/ml
[2024-11-30 17:03] VITALS: BMI 31.2
--- NOTE | 2024-11-30 17:22 | ED.GENMED ---
History of Present Illness
General
Chief Complaint: Breathing Problem
Source: patient and family (Daughter)
Exam Limitations: none
Time Seen by Provider: 11/30/24 16:35
Nursing documentation reviewed up to this point in time: agreed with
History of Present Illness
History of Present Illness:
84-year-old female with a past medical history as noted presents to the ER accompanied by her daughter for evaluation of shortness of breath. Patient reports onset of symptoms today�daughter confirms that she noted onset of symptoms today.
Daughter says that she got her mother up to walk around the house and noted that even with very minimal exertion patient was extremely winded. She says that with exertion mother was hunched over in moderate distress, diaphoretic and pale. Patient
says she did not have any chest pain during these episodes but was extremely short of breath. Symptoms improved with rest but did not resolve. Called PCP who referred to the ER to be evaluated. She does have distant history of PE, no longer on
Eliquis.
Past History
Past History
ED Past Medical History: Cancer (Bladder CA), GERD, HTN, Hypercholesterolemia and Other (PE/DVT)
ED Past Surgical History: Orthopedic (Right rotator cuff, Right femur repair, ) and Tonsilectomy
Social History
Tobacco: Former smoker (1/2ppd)
Alcohol: None
Drug: None
Personal:
Living: with family
Review of Systems
Review of Systems
All Other Systems: ROS reviewed and negative except as documented in HPI and ROS
Constitutional: Denies fever or chills
Respiratory: Reports cough (chronic) and trouble breathing
Cardiac: Denies chest pain or palpitations
ABD/GI: Denies abdominal pain, nausea or vomiting
: Denies flank pain
Musculoskeletal: Denies edema, neck pain or back pain
Neurological: Denies dizzy or headache
Phy Exam
Physical Exam
Physical Exam:
General: Awake, alert; no acute distress
Head: Normocephalic, atraumatic
Eyes: Conjunctiva normal, pupils equal round and reactive to light bilaterally
Throat: Airway intact, handling secretions
Neck: Trachea midline, no JVD
Lungs: Clear to auscultation bilaterally, no wheezing, rales, rhonchi; mild tachypnea, pulse ox 90% on room air
Heart: Tachycardia with regular rhythm, no murmurs, gallops, or rubs
Abd: Soft, non distended, nontender
Neuro: No gross deficits
Extremities: No edema in extremities, equal pulses in all extremities
Scores
Heart Failure Risk
Heart Failure Risk Score: Not Applicable
Heart Score for Chest Pain Patients
STEMI patient?: Not applicable
Withdrawal Assessment of Alcohol
Withdrawal Assessment Completed?: Not applicable
Course
Orders/Labs/Results
Orders:
Orders
11/30/24 15:50
Electrocardiogram (*1) Urgent
Reason for Study: Chest Pain
EKG- Treatment ONCE
11/30/24 16:01
COVID-19 Antigen Urgent
Source: Nasal Swab
Complete Blood Count/With Diff Urgent
Comprehensive Metabolic Panel Urgent
NT-proBNP Urgent
Troponin I Urgent
Comment: ADD ON
Influenza A+B Rapid Molecular Urgent
LINDA Source: Nasal Swab
Specimen Description:
11/30/24 16:36
CR Chest - 2 Views Urgent
Comment:
Reason For Exam: sob
11/30/24 17:21
CT Chest PE Study Urgent
Comment:
Reason For Exam: acute onset SOB, tachypnea, tachycardia; h/o PE
11/30/24 17:47
Add On- LAB Urgent
Tests Added?: trop
11/30/24 18:29
Heparin 6,400 units IV NOW STA
Nursing to Place Non Medication Order As Directed
Physician Order: PTT 6 hours after initial start of Heparin infusion
Above order entered?: Yes
11/30/24 18:30
Heparin [id number] Units/250 ml 25,000 units in 250 ml IV PER PROTOCOL
Weight to be used for heparin protocol in kilograms (kg):: 79.8
Protocol:: DVT/PE
PTT Goal Range to be used:: PTT 73 to 111 seconds
Order type:: Initial
INITIAL Infusion Dose (UNITS/KG/hr) & then follow protocol:: 18 units/kg/hr
Infusion Dose in UNITS/hr & then follow protocol (UNITS/hr):: 1,400
INFUSION RATE in mL/hr & then follow protocol (mL/hr):: 14
For DVT/PE algorithm, re-bolus for low PTT?: Yes
PTT less than or equal to 64 seconds:: Re-bolus 80 units/kg (max 10,000units). Increase by 300 units/hr
(+ 3mL/hr)
PTT 64.1 to 72.9 seconds:: Re-bolus 40 units/kg (max 5,000 units). Increase by 200 units/hr
(+ 2mL/hr)
PTT 73 to 111 seconds:: Target Range. No change in rate.
PTT 111.1 to 130.9 seconds:: Decrease rate by 200 units/hr (- 2 mL/hr)
PTT 131 to 199.9 seconds:: HOLD for 1 hr. Then decrease by 200 units/hr (- 2mL/hr)
PTT greater than or equal to 200 seconds:: HOLD for 2 hrs & Notify Provider. Then decrease by 300 units/hr
(- 3mL/hr)
Lab follow-up:: Each change, PTT q6h until 2 consecutive are therapeutic. Then
PTT daily.
11/30/24 18:38
Heparin [id number] Units/250 ml 25,000 units in 250 ml .ROUTE .STK-MED
11/30/24 18:41
PTT Urgent
Comment: Obtain baseline before beginning heparin infusion if not already collected
11/30/24 18:46
Heparin 6,400 units IV PRN PRN
11/30/24 18:47
Heparin 3,200 units IV PRN PRN
12/01/24 00:45
PTT Routine
Protime/PTT Urgent
Is the patient on Heparin?: Yes
Abnormal Lab Results
11/30/24
16:01
Absolute Monos (auto) 0.7 H 10^3/uL
(0.1-0.6)
Lymphocytes % 15.6 L %
(20.5-51.1)
BUN 18 H mg/dl
(7-17)
Glucose 138 H mg/dl
(70-99)
Troponin I 0.174 H* ng/ml
11/30/24 16:01
11/30/24 16:01
Vital Signs
Initial and Last Documented VS:
Initial Vital Signs
Temp Pulse Resp BP Pulse Ox
36.3 C 101 20 110/97 93
11/30/24 15:45 11/30/24 15:45 11/30/24 15:45 11/30/24 15:45 11/30/24 15:45
Last Documented Vital Signs
Temp Pulse Resp BP Pulse Ox
36.8 C 100 26 113/76 94
11/30/24 19:00 11/30/24 19:00 11/30/24 19:00 11/30/24 19:00 11/30/24 19:00
MDM/Problems Addressed
Differential Diagnosis Includes:
CHF, PE, anemia, pneumonia
MDM/Problems Addressed:
84-year-old female with history as noted presents for evaluation of shortness of breath particularly with exertion today. She is tachycardic, mildly tachypneic with a low normal pulse ox here. Physical exam as above. EKG shows sinus tachycardia.
Labs sent in triage including a CBC which shows no anemia, CMP which shows no clinically significant abnormalities. proBNP not significantly elevated only 352. COVID and flu negative. Chest x-ray reviewed by me shows no acute disease. Given
tachycardia and tachypnea with low normal pulse ox and history of PE without any other apparent cause for her dyspnea will send for a CT chest to rule out PE. Will add troponin. Monitor closely reassess after the above.
Troponin pending. CT PE reviewed by me appears to show bilateral pulmonary emboli; will start on heparin infusion. Plan for admission pending final report.
CT called back by radiologist: Positive for bilateral pulmonary emboli, equivocal for right heart strain. She does have slight elevation of troponin. Heparin infusion has been started. PERT alert called will discuss with pulmonology.
Case discussed with pulmonology and interventional radiology, plan to take for catheter directed thrombolysis. Case discussed with hospitalist to facilitate ICU admission.
*Radiology
Radiology exam reviewed: preliminary read by ED provider and radiology read reviewed
*Pulse Oximetry
Patient hypoxic: yes
*EKG
Interpreted by ED Provider?: Yes
Heart Rate: 104
Rate: tachycardiac
Rhythm: sinus and sinus tachycardia
[place]: normal axis
Interval: normal interval
QRS Pattern: low voltage
Ischemia: no ischemia
*Critical Care Note
Total Time (30-74mins, 75-104mins- exclusive of procedures): Not Applicable
Data Reviewed
Review of Other/Old Records Reveals: Labs and Records
Source: patient and family
Patient Management
Discussion with other providers: Hospitalist (Discussed with hospitalist) and Sales Project Engineer (Discussed with interventional radiology, pulmonology)
Escalation/DeEscalation of care consider admission/obs:
Admission indicated
ED Attending Note
-
Portions of this chart may have been created with voice recognition software.� Occasional wrong word or��sound alike� substitutions may have occurred due to the inherent limitations of voice recognition software.
Discharge Plan
Departure
Patient Disposition: Admit
Date of Disposition: 11/30/24
Time of Disposition: 18:43
Admit to doctor: Virgilio
Presentation/result/management discussed w/ accepting MD/DO: Hospitalist
Discharge Problem:
Pulmonary embolism
Prescriptions:
No Action
cholecalciferol (vitamin D3) [Vitamin D3] 25 mcg (1,000 unit) Tablet
50 mcg PO DAILY Qty: 0
calcium citrate 200 mg (950 mg) Tablet
200 mg PO DAILY Qty: 0
pravastatin 40 mg tablet
40 mg PO HS
multivitamin Tablet
1 tab PO DAILY
amlodipine 5 mg tablet
5 mg PO DAILY
donepezil 5 mg Tablet
5 mg PO DAILY
cetirizine [Zyrtec] 10 mg Tablet
10 mg PO HS
lisinopril 5 mg Tablet
5 mg PO BID
azelastine 137 mcg (0.1 %) [place],Non-Aerosol
2 spray INTRANASAL BID
Rx Instructions:
both nares
fluticasone propionate [Flonase] 50 mcg/actuation [place],Suspension
1 spray INTRANASAL DAILY
Rx Instructions:
both nares
omeprazole 20 mg Tablet,Delayed Release (Dr/Ec)
20 mg PO DAILY
Rx Instructions:
30 mins prior to breakfast
Gemtesa 75 mg Tablet
75 mg PO DAILY
Referrals:
Antonio Mahmood CRNP [Family Provider] -
Interventions
Interventions:
*Risk Screen - Suicide Last Done: 11/30/24 15:45
*General Assessment Last Done: 11/30/24 15:45
*Neglect/Abuse Screening Last Done: 11/30/24 15:45
*ED- Fall Risk Assessment Last Done: 11/30/24 17:33
*ED COVID-19 Vaccine History Last Done: 11/30/24 17:03
ED- Cardiac Assessment Last Done: 11/30/24 19:00
ED- Pulmonary Assessment Last Done: 11/30/24 19:00
Discharge Date and Time
Print Language: BERMUDIAN
[2024-11-30 18:35] LABS: Troponin I 0.174 ng/ml
[2024-11-30 18:39] VITALS: BP 124/90
[2024-11-30] MEDS: HEPARIN 6400 UNITS IV (18:41)
[2024-11-30] MEDS: HEPARIN 25000 UNITS/250 ML IV (18:45)
[2024-11-30 19:00] VITALS: BP 113/76
[2024-11-30 19:01] LABS: APTT 26.3 Sec (23.4-35.0)
--- NOTE | 2024-11-30 19:45 | HPS.HSE ---
Family Physician
-
Family Physician: RACHEL Augustine
Chief Complaint
-
Dyspneic episode
History of Present Illness
This is a 84-year-old female with past medical history significant for hypertension, hyperlipidemia, GERD, history of bladder cancer, dementia, history of DVT about 1-1/2 years ago who presents to the emergency department with episode of severe
dyspnea on exertion.
Patient and family reported that she was in usual state of health up until today. She was walking out of her house and then became suddenly very dyspneic. She could not catch her breath. She was diaphoretic and pale. She had to stop and they
took about 20 minutes to catch her breath. Since then she has been short of breath. She denied having any chest pain. She denied any dizziness or lightheadedness. She remained quite dyspneic with any activity and was brought to the emergency
department by family.
Patient had a DVT in 2023 after rotator cuff surgery. She was briefly on prophylactic anticoagulation and developed a DVT soon after that was discontinued. She was on anticoagulation for 6 months and discontinued in August 2024. 2 months after
discontinuation the patient had a screening ultrasound of the lower extremities which did not show any DVTs. According to daughter patient had a PE in the 1970s in the setting. At that time she was a smoker and she had just come off of
control.
He quit smoking about a year ago. She has no recent travels. No sick contacts. She denies any recent cough cold or flulike symptoms. She denies any recent lower extremity swelling.
In the emergency department she had a blood pressure of 113/70, she was tachycardic to the low 100s, she was tachypneic to the high 30s. She was afebrile. Was not saturation is currently 94% on 3 to 4 L. ECG shows sinus tachycardia without acute
ischemic changes. Troponin was elevated at 0.17, BNP is equivocal at 352. CBC was completely unremarkable. Electrolytes BUN/creatinine were normal. Glucose was normal. COVID negative. Flu neg.
She had a CT with PE protocol which shows bilateral pulmonary emboli with a large clot burden. There is moderate to right heart strain. There are no focal consolidations. There are no pulmonary nodules.
Medical History
Past Medical History
Past Medical History: Reports Other
Additional Past Medical History:
Past medical history Reviewed:
Hypertension
Hyperactive bladder
GERD
Recent ORIF right hip
Social history: Ex-smoker, no alcohol use, ambulates with a walker.
Family history: Reviewed and noncontributory
Past Surgical History: Reports Other
Social History
Unable to obtain full social history at this time due to: Other
Tobacco: Former Smoker
Alcohol: None
Drug: None
Personal: Single
Living: With Family
Employment: Retired
Family History
Family History: Not pertinent and Other
Allergies / Home Medications
Allergies reflects when Allergies were last updated in [facility].
Home Medications with original date entered in [facility]
Allergy/Medication List:
Allergies
Allergy/AdvReac Type Severity Reaction Status Date / Time
morphine Allergy Hives Verified 11/30/24 15:49
Sulfa (Sulfonamide Allergy Rash Verified 11/30/24 15:49
Antibiotics)
Home Medications
calcium citrate 200 mg PO DAILY Supplement ##0 09/08/23
cholecalciferol (vitamin D3) 25 mcg (1,000 unit) tablet (Vitamin D3) 50 mcg PO DAILY Supplement ##0 09/08/23
amlodipine 5 mg tablet 5 mg PO DAILY Blood Pressure 11/17/23
multivitamin 1 tab PO DAILY Supplement 11/17/23
pravastatin 40 mg tablet 40 mg PO HS High Cholesterol 11/17/23
azelastine 137 mcg (0.1 %) nasal spray 2 spray intranasal BID 11/30/24
cetirizine 10 mg tablet (Zyrtec) 10 mg PO HS 11/30/24
donepezil 5 mg tablet 5 mg PO DAILY 11/30/24
fluticasone propionate 50 mcg/actuation nasal spray,suspension 1 spray intranasal DAILY 11/30/24
lisinopril 5 mg tablet 5 mg PO BID 11/30/24
omeprazole 20 mg tablet,delayed release 20 mg PO DAILY 11/30/24
vibegron 75 mg tablet (Gemtesa) 75 mg PO DAILY 11/30/24
Review of Systems
-
History Source: Family
Constitutional: Reports No Symptoms
EENT: Reports No Symptoms
Respiratory: Reports Trouble Breathing
Cardiac: Reports Diaphoresis
Abdomen/GI: Reports No Symptoms
: Reports No Symptoms
Musculoskeletal: Reports No Symptoms
Skin: Reports No Symptoms
Neurological: Reports No Symptoms
Endocrine: Reports No Symptoms
Hematologic/Lymphatic: Reports No Symptoms
Psych: Reports No Symptoms
Physical Exam
Vital Signs
Vital Signs
Temp Pulse Resp BP Pulse Ox
98.3 F 100 26 113/76 94
11/30/24 19:00 11/30/24 19:00 11/30/24 19:00 11/30/24 19:00 11/30/24 19:00
Physical Exam
General: Well Developed, Well Nourished and Respiratory Distress
HEENT: NormoCephalic, Anicteric, Moist mucous membranes, Atraumatic and Oxygen
Respiratory: Clear
Cardiac: S1/S2, Regular Rhythm and Tachycardia; No Murmur, Rub, Gallop, Peripheral Edema or JVD
Breast: Deferred by me
GI: Soft, Non Tender, Non Distended and Normal Bowel Sounds
Rectal: Deferred by Provider
Genito-urinary: Deferred by me
Musculoskeletal: No Clubbing, No Cyanosis and No Edema
Skin: Warm
Neuro: AO x 3 and Nonfocal/grossly intact
Hematologic/Lymphatic: No Lymphadenopathy
Psych: Calm
Laboratory Results
-
11/30/24 16:01
11/30/24 16:01
Laboratory Results
APTT 26.3 Sec (23.4-35.0) 11/30/24 18:41
Total Bilirubin 0.9 mg/dl (0.2-1.3) 11/30/24 16:01
AST 27 U/L (14-36) 11/30/24 16:01
ALT 19 U/L (0-35) 11/30/24 16:01
Alkaline Phosphatase 116 U/L (38-126) 11/30/24 16:01
Troponin I Cancelled 11/30/24 17:40
Data Reviewed
-
CT Scan: Report Reviewed by me
Medical Tests (Nuc Med, Echo, EKG etc): Image Personally Visualized and interpreted
Lab Data: Labs Reviewed by me
Old Records: Reviewed
Impression/Plan
-
IMPRESSION:
84 y.o with bilateral PEs, right heart strain, elevated troponin. She is hemodynamically stable and is on supplemental oxygen. Sub-massive PE. She is very tachypneic and has severe dyspnea with any activity. Likely orthostatic. With large clot
burden and symptoms c/w sub-massive/massive PE, patient d/w IR and Pulm. Plan is to take patient for thrombolysis/IR thrombectomy. History suggestive of recurrent VTE.
PLAN:
1. PE - 3rd episode in lifetime. PE post- 1970s, DVT post operatively 1 year ago and now a non-provoked submassive PE. HD stable at rest.
- admit to ICU
- heparin gtt
- supportive measures with supplemental O2, no pressors needed.
- thrombolysis per IR
- f/u echo in am
- npo for now, ADAT in am
- hold antihypetensives, restart lisinopril and amlodipine in am
- continue PPI
- recent u/s in september, negative for DVT. No current swelling or leg tenderness. No indication for repeat u/s
- Indefinite ORAL AC after stabilization, some fall risk has to be mitigated, PT consulted
- IR consulted and following
- Production Machine Tender consulted
Full Code
[2024-11-30 19:51] LABS: INR 1.04; PT 13.9 Sec (11.4-14.6)
[2024-11-30 20:00] VITALS: BP 130/76
--- NOTE | 2024-11-30 21:28 | W.PN.UPDATE ---
Update Note
Progress Note Update
PA arteriogram performed. Right main PA pressure 44/19, mean 28 mm Hg.
Left main pressure 40/16, mean 25.
Emboli were considered to far peripheral to reach with suction catheter, therefore decision was made to do overnight thrombolysis.
There was a larger embolus burden on the right side, therefore lysis was initiated on the right side.
tPA to run at 1 mg/hr through blue infusion catheter for 6 hours. After 6 hours, please decrease the tpa rate to 0.5 mg/hr, and continue that rate until she returns to IR for followup tomorrow.
Heparin to run at 700 units per hour without titration, until she returns to IR.
Bedrest, must lie flat on her back to avoid moving the lysis catheter out of position.
Patient and daughter updated.
[2024-11-30] MEDS: CATHFLO/ACTIVASE 1000 MG INF CATH (22:00)
[2024-11-30 22:21] VITALS: BP 142/80
[2024-11-30] MEDS: COLACE PO (22:54)
[2024-11-30] MEDS: PRAVACHOL PO (22:54)
[2024-11-30 23:00] VITALS: BP 132/74
[2024-12-01] VITALS (21 sets, daily range): BP systolic 74–160; BP diastolic 52–85; BMI 29.6
--- NOTE | 2024-12-01 00:43 | PTCARENOTE ---
pt arrived from IR, ALT gtt infusing through R FEM sheath, and hep gtt infusing peripherally per MD orders, pt AAOx3 with hx of dementia, family at bedside, pt on 5L NC, 96%, SR on the monitor, NPO, purwick in place, R FEM groin sheath with dressing
intact, +pulses, B/L LE warm, denies numbness or tingling, bed alarm on and call sullivan in reach
--- NOTE | 2024-12-01 02:00 | PTCARENOTE ---
pt with small amount of oozing at R fem site, EXTERMINATION INSPECTOR made aware and at bedside, no new orders at this time
[2024-12-01 05:25] LABS: Hematocrit 37.6 % (37.0-47.0); Hemoglobin 12.9 g/dL (12.0-16.0); Mean Corp Hgb Conc. 34.3 g/dL (33.0-37.0); Mean Corpuscular Hgb 28.3 pg (27.0-31.0); Mean Corpuscular Volume 82.5 fL (81.0-99.0); Mean Platelet Volume 9.4 fL (7.4-10.4); Platelet Count 200 10^3/uL (130-400); Red Blood Cell Count 4.56 10^6/uL (4.20-5.40); Red Cell Dist. Width 13.5 % (11.5-14.5)
[2024-12-01 05:40] LABS: INR 1.08; PT 14.4 Sec (11.4-14.6)
[2024-12-01 05:42] LABS: APTT 73.1 Sec (23.4-35.0)
[2024-12-01 05:59] LABS: Blood Urea Nitrogen 14 mg/dl (7-17); Calcium 8.8 mg/dl (8.4-10.2); Carbon Dioxide 20 mmol/L (22-30); Chloride 111 mmol/L (98-107); Estimated Creatinine Clearance 62 ml/min; Glucose 103 mg/dl (70-99); Magnesium 1.8 mg/dl (1.6-2.3); Potassium 4.4 mmol/L (3.5-5.1); Sodium 139 mmol/L (135-145); eGFR > 60.00
--- NOTE | 2024-12-01 06:03 | DOWNTIME ---
There was a [employer] Downtime on 12/01/2024 from 0100 to 12/02/2023 at 0420 . Downtime documentation of patient's care, including medication administrations, has been reconciled in the electronic record per guidelines. Refer to the
patient's paper chart under the miscellaneous tab to see printed paper medication records and downtime forms.
[2024-12-01 06:05] LABS: Troponin I 0.193 ng/ml
--- NOTE | 2024-12-01 06:07 | PTCARENOTE ---
pt c/o lower ABD pain stating ' my bladder is full' , pt was bladder scanned and 500cc scanned, attempted to bs x3 but unsuccessful, COUNTY ATTORNEY made aware, now new orders at this time, will pass along to dayshift RN , pt tolerated attempts, bed alarm on and
call sullivan in reach
[2024-12-01] MEDS: CATHFLO/ACTIVASE 1000 MG INF CATH (07:00)
--- NOTE | 2024-12-01 07:35 | W.PN.HOSP.TC ---
Today's Communication/Plan
-
see A/P
Assessment / Plan
Assessment / Plan
HPI: 84-year-old female with past medical history significant for hypertension, hyperlipidemia, GERD, history of bladder cancer, dementia, history of DVT about 1-1/2 years ago who presented to the emergency department with episode of severe dyspnea
on exertion.
Patient had a DVT in 2023 after rotator cuff surgery. She was briefly on prophylactic anticoagulation and developed a DVT soon after that was discontinued. She was on anticoagulation for 6 months and discontinued in August 2024. 2 months after
discontinuation the patient had a screening ultrasound of the lower extremities which did not show any DVTs. According to daughter patient had a PE in the in the setting. At that time she was a smoker and she had just come off of
control.
She quit smoking about a year ago. She has no recent travels. No sick contacts.
In the emergency department she had a blood pressure of 113/70, she was tachycardic to the low 100s, she was tachypneic to the high 30s. 94% on 3 to 4 L. ECG shows sinus tachycardia without acute ischemic changes. Troponin was elevated at 0.17.
She had a CT with PE protocol which shows bilateral pulmonary emboli with a large clot burden. There is moderate to right heart strain. There are no focal consolidations. There are no pulmonary nodules.
A/P:
# Acute BL submassive PE
# Acute hypoxic respiratory insufficiency
# h/o VTE: PE post- , DVT post operatively 1 year ago and now a non-provoked submassive PE.
Placed on 3L NC -> down to 2L NC, wean O2 as tolerated, pt not on home O2
s/p thrombolysis per IR
continue heparin drip with eventual plan to transition to OAC
f/u echo
npo for now, ADAT in am
# Essential hypertension
hold antihypertensives currently, BP stable
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
# GERD
continue PPI
DVT ppx: hep drip with eventual plan to transition to OAC
Full Code
DW Electrical Engineering Drafting Officer
DW RN
Anticipated Discharge: > 48 hours
Subjective/Interval History
-
Date of Service: December 01, 2024
Objective Data
-
Labs:
Laboratory Results
11/30/24 12/01/24
18:41 05:10
WBC 7.0
Hgb 12.9
Hct 37.6
Plt Count 200
PT 13.9 14.4
INR 1.04 1.08
APTT 73.1 H
Sodium 139
Potassium 4.4
Chloride 111 H
Carbon Dioxide 20 L
BUN 14
Creatinine 0.7
Glucose 103 H
Calcium 8.8
Vital Signs:
Vital Signs
Temp Pulse Resp BP Pulse Ox
36.6 C 76 34 127/63 98
12/01/24 04:00 12/01/24 07:00 12/01/24 07:00 12/01/24 07:00 12/01/24 07:00
Review of Systems
-
All other systems: Reviewed and negative
Physical Exam
-
General: Well Developed, Well Nourished, Comfortable and Conversant
HEENT: Normocephalic, Atraumatic and Oxygen (2L NC)
Respiratory: Clear to Auscultation and Non Labored Respirations; Negative Accessory Resp Muscle Use
Cardiac: Regular Rhythm and S1/S2
GI: Soft and Nontender
Musculoskeletal: No Edema
Neuro: Awake, Alert and Oriented
Psych: Calm and Intact Judgement/Insight
Data Reviewed
-
CT Scan: Report Reviewed by me
Labs: Labs Reviewed by me
[2024-12-01] MEDS: COLACE PO (08:00)
--- NOTE | 2024-12-01 08:14 | CON.INTV ---
Addendum entered and electronically signed by Seymour Saavedra MD 12/01/24 15:48:
Critical Care time 60 mins -- The patient is admitted for acute critical illness for the treatment of vital organ failure and/or prevention of further life-threatening conditions. Total care includes time spent in review of history, physical exam,
medications, hemodynamic/ventilator parameters, laboratory data, imaging and discussion with house staff, pharmacy, respiratory therapy, insurance risk analyst, and nursing.
Patient was initially discussed in PERT conference call on 11/30/2024, data was remotely reviewed. Following day patient was seen and examined in person.
Original Note:
Consultation
Consultation Request
Date/Time Consultation Requested: 11/30/24 22:12
Date/Time Consultation Performed: 12/01/24 08:30
Requesting Provider: Subhash Poole MD
Performing Provider: Tres Thacker MD ; Seymour Saavedra MD
Reason for Consultation: Shortness of breath;PE
Medical History
-
Chief Complaint: Shortness of breath
History of Present Illness:
This is a 84-year-old female with known past medical history of hypertension, hyperlipidemia, GERD, history of bladder cancer, dementia history of DVT in 2023 after rotator cuff surgery, history of PE in 1977 , presenting in the emergency
department with sudden episodes of shortness of breath especially on exertion. She was unable to walk due to severe dyspnea.
Last year she was on prophylactic anticoagulant for 6 months after dvt per patient. Discontinued in August 2024. She denies any recent travel. Denies any pain in the legs or arms.
In the ER she had vitals: BP 113/70, pulse 100, respiratory rate 30, afebrile. Saturation was in the low 90s and she was placed on O2 via nasal cannula.
EKG showed sinus tachycardia. Tropes were slightly elevated at 0.17, BNP 352. CBC unremarkable BUN slightly elevated. Blood glucose within normal limits. COVID and flu negative.
CT showed bilateral PE and moderate right heart strain.
She was started on heparin drip and IR was consulted for thrombolysis.
Emboli were considered too far peripheral to reach with suction catheter therefore decision was made to do overnight thrombolysis was a large embolus burden on the right side therefore lysis was initiated on the right side.
PMHx: Hypertension, GERD, history of bladder cancer, mild dementia, hyperlipidemia. history of PE, history of DVT after surgery
PSHx: ORIF right hip, rotator cuff repair
Past Medical History
Past Medical History: Psychiatric and Other (As above)
Past Surgical History: Other (As above)
Social History
Tobacco: Former Smoker (Quit 1 year ago)
Alcohol: None
Drug: None
Living: With Family
Employment: Retired
Family History
Family History: Reviewed & Not Pertinent
Allergies / Home Medications
Allergies
Allergy/AdvReac Type Severity Reaction Status Date / Time
morphine Allergy Hives Verified 11/30/24 15:49
Sulfa (Sulfonamide Allergy Rash Verified 11/30/24 15:49
Antibiotics)
Home Medications
�Medication �Instructions �Recorded �Confirmed �Last Taken �Type
calcium citrate 200 mg PO DAILY Supplement ##0 09/08/23 11/30/24 11/17/23 History
cholecalciferol (vitamin D3) 25 50 mcg PO DAILY Supplement ##0 09/08/23 11/30/24 11/17/23 History
mcg (1,000 unit) tablet (Vitamin
D3)
amlodipine 5 mg tablet 5 mg PO DAILY Blood Pressure 11/17/23 11/30/24 11/17/23 History
multivitamin 1 tab PO DAILY Supplement 11/17/23 11/30/24 11/17/23 History
pravastatin 40 mg tablet 40 mg PO HS High Cholesterol 11/17/23 11/30/24 11/16/23 History
azelastine 137 mcg (0.1 %) nasal 2 spray intranasal BID 11/30/24 11/30/24 Unknown History
spray
cetirizine 10 mg tablet (Zyrtec) 10 mg PO HS 11/30/24 11/30/24 Unknown History
donepezil 5 mg tablet 5 mg PO DAILY 11/30/24 11/30/24 Unknown History
fluticasone propionate 50 1 spray intranasal DAILY 11/30/24 11/30/24 Unknown History
mcg/actuation nasal
spray,suspension
lisinopril 5 mg tablet 5 mg PO BID 11/30/24 11/30/24 Unknown History
omeprazole 20 mg tablet,delayed 20 mg PO DAILY 11/30/24 11/30/24 Unknown History
release
vibegron 75 mg tablet (Gemtesa) 75 mg PO DAILY 11/30/24 11/30/24 Unknown History
Review of Systems
-
History Source: Patient
Respiratory: No Symptoms
Cardiac: No Symptoms
Abdomen/GI: No Symptoms
: Difficulty Voiding
Neuro: No Symptoms
Vitals / Labs / Diagnostic Testing
Vital Signs
Temp Pulse Resp BP Pulse Ox
98.6 F 76 34 127/63 98
12/01/24 07:49 12/01/24 07:00 12/01/24 07:00 12/01/24 07:00 12/01/24 07:00
Lab Data
12/01/24 05:10
12/01/24 05:10
Laboratory Results
11/30/24 12/01/24
18:41 05:10
PT 13.9 14.4
INR 1.04 1.08
APTT 26.3 73.1 H
Microbiology
11/30/24 16:01 Nasal Swab Influenza Types A & B ([facility]) - Final
Negative for Influenza A & B, NAAT
Negative results must be combined with clinical observations
and patient history.
Nucleic Acid Amplification test (NAAT)performed on the
[employer] platform.
Diagnostic Testing:
Physical Exam
-
HEENT: Moist Mucous Membranes
Cardiovascular: S1/S2 and Regular Rhythm
Respiratory: Clear and Non-Labored Respirations
GI: Soft, Non Distended and Non Tender
Neurology: Awake and Alert
Skin: Warm and Dry
General: Comfortable
Exam:
Patient laying flat in the bed
Assessment
-
Impression:
# Acute B/L submassive PE
# Acute hypoxic respiratory insufficiency
# h/o PE post- 1970s, DVT post operatively 1 year ago
# Hypertension
# GERD
# Bladder cancer
# Elevated trops
Plan:
Continue heparin drip with eventual transition to oral anticoagulant
Patient on catheter directed thrombolysis; tPA started overnight
Echo today
Follow-up arteriogram with IR today
Maintain n.p.o. for now
Continue PPI
Patient will need indefinite oral anticoagulation once able
Data:
CT 11/30/24
IMPRESSION: Examination is positive for bilateral pulmonary embolism as described above. Moderate to large burden of embolism. There is probably component of right heart strain as described.
Small focal areas of confluent parenchymal opacity bilaterally, likely a small focal areas of pulmonary infarction. There is also dependent atelectasis within the posterior lower lobes bilaterally.
Slightly enlarged lymph nodes within the mediastinum, most likely reactive.
Coronary artery calcifications are present. Please correlate with symptoms of and risk factors for coronary artery disease, with further workup as clinically appropriate.
Data Reviewed
-
EKG: Report reviewed by me
Radiology: Report reviewed by me
CT Scan: Report reviewed by me
Ultrasound: Report reviewed by me
Labs: Labs reviewed by me, Discussed with Physician and Discussed with Patient
--- NOTE | 2024-12-01 08:45 | PTCARENOTE ---
Rec'd care of patient at 0700. Patient alert and oriented. NSR on tele. No edema. Palpable pulses. Neurovascular check wnl. Oxygen weaned from 5L nc to 2L nc. Pulse ox 96%. Lung sounds cta. +BS. No BM. NPO. Purewick in place for urinary
incontinence. Patient having some difficulty with voiding while laying flat. Voiding in small amounts. Hand-off verification completed with previous RN. Heparin gtt infusing @ 700 units/hr. Right femoral sheath with tpa. Bed alarm on and safe
environment maintained.
--- NOTE | 2024-12-01 11:05 | CM ---
CM following re: discharge planning.
Discussed in Rounds, reviewed pt's chart, met with pt.
Pt is an 84 year old female, admitted with primary dx of Acute BL submassive PE.
Pt reports she lives with daughter 2 SH, 1 step to enter, has 2 supportive living children, one son . Emotional support offered and provided. Pt reports she ambulates with a cane, known to [facility] and was at [facility] and [facility] in the
past. Pt expressed her desire to return back home at discharge.
PT and OT will evaluate the pt to determine a level of care at discharge.
PCP: Antonio Mahmood
Pharmacy: [facility]
D/C plan: pt feels she will be able to return back home at discharge. PT/OT to evaluate.
CM will follow with discharge plan updates as hospitalization progresses
--- NOTE | 2024-12-01 11:30 | PTCARENOTE ---
Patient transported to around 1100. VSS.
--- NOTE | 2024-12-01 11:46 | W.PN.UPDATE ---
Update Note
Progress Note Update
Follow up angiography and pressure measurements show significant improvement, thrombolysis infusion stopped. Will pull R CFV sheath in ~1 hour, ok to resume heparin gtt 2 hours after sheath pull. Maintain bedrest with bed flat, pillow ok for 2 hours
following sheath pull.
--- NOTE | 2024-12-01 12:25 | PTCARENOTE ---
Patient back in room from IR. Awaiting removal of sheath. Patient aware she must remain flat until 2hrs post sheath removal. Heparin drip off until 2 hours post removal of sheath as well. VSS. No other changes. Patient alert and oriented. Only
complaint is some back discomfort due to laying flat. NSR on tele. Pulse ox 96% on 2L nc. Lung sounds cta. +BS. Purewick in place.
--- NOTE | 2024-12-01 13:11 | PTCARENOTE ---
Sheath removed by IR. Patient flat and Heparin off until 1510.
--- NOTE | 2024-12-01 14:00 | PTCARENOTE ---
Echo in progress.
--- NOTE | 2024-12-01 14:33 | PTCARENOTE ---
Patient downgraded to tele.
[2024-12-01] MEDS: PROTONIX 40 MG PO (15:02)
[2024-12-01] MEDS: ARICEPT 5 MG PO (15:02)
[2024-12-01] MEDS: PRAVACHOL 40 MG PO (20:37)
[2024-12-01] MEDS: COLACE 100 MG PO (20:37)
[2024-12-01 21:52] LABS: APTT 145.6 Sec (23.4-35.0)
[2024-12-02] VITALS (8 sets, daily range): BP systolic 127–160; BP diastolic 65–82; PULSE 84; O2SAT 96
[2024-12-02] MEDS: HEPARIN 25000 UNITS/250 ML IV (00:11)
[2024-12-02 08:03] LABS: APTT 182.1 Sec (23.4-35.0)
[2024-12-02 08:04] LABS: Hematocrit 36.3 % (37.0-47.0); Hemoglobin 12.2 g/dL (12.0-16.0); Mean Corp Hgb Conc. 33.6 g/dL (33.0-37.0); Mean Corpuscular Hgb 28.1 pg (27.0-31.0); Mean Corpuscular Volume 83.6 fL (81.0-99.0); Mean Platelet Volume 9.7 fL (7.4-10.4); Platelet Count 213 10^3/uL (130-400); Red Blood Cell Count 4.34 10^6/uL (4.20-5.40); Red Cell Dist. Width 13.5 % (11.5-14.5); White Blood Cell Count 7.6 10^3/uL (4.8-10.8)
[2024-12-02 08:14] LABS: Blood Urea Nitrogen 19 mg/dl (7-17); Calcium 8.8 mg/dl (8.4-10.2); Carbon Dioxide 23 mmol/L (22-30); Chloride 109 mmol/L (98-107); Estimated Creatinine Clearance 53 ml/min; Glucose 107 mg/dl (70-99); Magnesium 1.9 mg/dl (1.6-2.3); Potassium 3.8 mmol/L (3.5-5.1); Sodium 139 mmol/L (135-145); eGFR > 60.00
--- NOTE | 2024-12-02 08:36 | W.PN.HOSP.TC ---
Addendum entered and electronically signed by Linda Griffin MD 12/02/24 13:18:
# Acute hypoxic respiratory failure
Addendum entered and electronically signed by Linda Griffin MD 12/02/24 09:21:
updated daughter on the phone
Original Note:
Today's Communication/Plan
-
see A/P
Assessment / Plan
Assessment / Plan
HPI: 84-year-old female with past medical history significant for hypertension, hyperlipidemia, GERD, history of bladder cancer, dementia, history of DVT about 1-1/2 years ago who presented to the emergency department with episode of severe dyspnea
on exertion.
Patient had a DVT in 2023 after rotator cuff surgery. She was briefly on prophylactic anticoagulation and developed a DVT soon after that was discontinued. She was on anticoagulation for 6 months and discontinued in August 2024. 2 months after
discontinuation the patient had a screening ultrasound of the lower extremities which did not show any DVTs. According to daughter patient had a PE in the in the setting. At that time she was a smoker and she had just come off of
control.
She quit smoking about a year ago. She has no recent travels. No sick contacts.
In the emergency department she had a blood pressure of 113/70, she was tachycardic to the low 100s, she was tachypneic to the high 30s. 94% on 3 to 4 L. ECG shows sinus tachycardia without acute ischemic changes. Troponin was elevated at 0.17.
She had a CT with PE protocol which shows bilateral pulmonary emboli with a large clot burden. There is moderate to right heart strain. There are no focal consolidations. There are no pulmonary nodules.
A/P:
# Acute BL submassive PE
# Acute hypoxic respiratory insufficiency
# h/o VTE: PE post- , DVT post operatively 1 year ago, and now non-provoked submassive PE.
Cont 2L NC, wean O2 as tolerated, pt not on home O2
s/p thrombolysis per IR
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
CM CS for cost of Eliquis
Recc outpt Heme follow up for hypercoagulable work up
echo confirmed RH strain, EF 55-60%. Moderate/severe tricuspid regurgitation.
# Pulmonary parenchymal opacity bilaterally, likely a small focal areas of pulmonary infarction.
# associated slightly enlarged lymph nodes within the mediastinum, most likely reactive.
d/w IR, who recc outpt follow up with CT in 3 months to monitor lung opacity and LN to determine if findings are 2/2 PE vs other (e.g. lung cancer)- pt informed
# Essential hypertension
hold antihypertensives currently, BP stable
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
# GERD
continue PPI
DVT ppx: hep drip -> Eliquis
Full Code
Dispo: PT Eval
DW RN
called daughter several times to update, calls not answered
Anticipated Discharge: Within 24 hours
Subjective/Interval History
-
Date of Service: December 02, 2024
Objective Data
-
Labs:
Laboratory Results
12/01/24 12/02/24
21:29 06:33
WBC 7.6
Hgb 12.2
Hct 36.3 L
Plt Count 213
APTT 145.6 H 182.1 H*
Sodium 139
Potassium 3.8
Chloride 109 H
Carbon Dioxide 23
BUN 19 H
Creatinine 0.8
Glucose 107 H
Calcium 8.8
Vital Signs:
Vital Signs
Temp Pulse Resp BP Pulse Ox
36.6 C 72 22 130/68 95
12/02/24 07:31 12/02/24 07:31 12/02/24 07:31 12/02/24 07:31 12/02/24 07:31
I&O
03/12/02/24 12/03/24
06:59 06:59 06:59
Intake Total 313 / 313
Output Total 600 / 600
Balance -287 / -287
Review of Systems
-
All other systems: Reviewed and negative
Physical Exam
-
General: Well Developed, Well Nourished, Comfortable and Conversant
HEENT: Normocephalic, Atraumatic and Oxygen (1L NC)
Respiratory: Clear to Auscultation and Non Labored Respirations; Negative Accessory Resp Muscle Use
Cardiac: Regular Rhythm and S1/S2
GI: Soft and Nontender
Musculoskeletal: No Edema
Neuro: Awake, Alert and Oriented
Psych: Calm and Intact Judgement/Insight
Data Reviewed
-
CT Scan: Report Reviewed by me, Discussed with Physician (RICARDO) and Discussed with Patient
Labs: Labs Reviewed by me
[2024-12-02] MEDS: COLACE 100 MG PO ×2 (08:41→20:34)
[2024-12-02] MEDS: ELIQUIS 10 MG PO ×2 (08:41→20:34)
[2024-12-02] MEDS: PROTONIX 40 MG PO (08:42)
[2024-12-02] MEDS: ARICEPT 5 MG PO (08:54)
--- NOTE | 2024-12-02 12:15 | PN.CDI ---
CDI
- -
CDI:
Physician Documentation Request
Admit Date: 11/30/24 20:29
Dear Doctor Elias,
Patient admitted with bilateral pulmonary embolism.
H&P, 'She was walking out of her house and then became suddenly very dyspneic. She could not catch her breath. She was diaphoretic and pale. She had to stop and they took about 20 minutes to catch her breath. Since then she has been short of
breath.
12/02 PN, 'Acute hypoxic respiratory insufficiency'
12/01 PCN, 'pt on 5L NC, 96%,'
12/01 PCN, 'Oxygen weaned from 5L nc to 2L nc. Pulse ox 96%'
Selected Entries
11/30/24
19:00 12/01/24
00:30 12/01/24
07:45
Nasal Cannula flow liters per minute 2 5 2
Please provide in your note the diagnosis associated with the above oxygen use:
Acute hypoxic respiratory failure
Hypoxia only
Other
Use of terms such as suspected, likely, concern for, or probable (associated with a specific diagnosis that is being evaluated, monitored, or treated as if it exists) are acceptable and can be coded in the inpatient setting, when documented at the
time of discharge.
Thank you,
Michelle MAIER,RN,CCDS
CDI Specialist
Available via tiger text
Please use your independent medical judgment in providing your response.
[2024-12-02] MEDS: PRAVACHOL 40 MG PO (20:34)
[2024-12-03 03:46] VITALS: BP 138/68
[2024-12-03 07:00] VITALS: BP 156/64
--- NOTE | 2024-12-03 08:04 | W.PN.HOSP.TC ---
Addendum entered and electronically signed by Linda Griffin MD 12/03/24 12:08:
total DC time 38 min
Original Note:
Today's Communication/Plan
-
likely DC today if am blood work WNL
Assessment / Plan
Assessment / Plan
HPI: 84-year-old female with past medical history significant for hypertension, hyperlipidemia, GERD, history of bladder cancer, dementia, history of DVT about 1-1/2 years ago who presented to the emergency department with episode of severe dyspnea
on exertion.
Patient had a DVT in 2023 after rotator cuff surgery. She was briefly on prophylactic anticoagulation and developed a DVT soon after that was discontinued. She was on anticoagulation for 6 months and discontinued in August 2024. 2 months after
discontinuation the patient had a screening ultrasound of the lower extremities which did not show any DVTs. According to daughter patient had a PE in the in the setting. At that time she was a smoker and she had just come off of
control.
She quit smoking about a year ago. She has no recent travels. No sick contacts.
In the emergency department she had a blood pressure of 113/70, she was tachycardic to the low 100s, she was tachypneic to the high 30s. 94% on 3 to 4 L. ECG shows sinus tachycardia without acute ischemic changes. Troponin was elevated at 0.17.
She had a CT with PE protocol which shows bilateral pulmonary emboli with a large clot burden. There is moderate to right heart strain. There are no focal consolidations. There are no pulmonary nodules.
A/P:
# Acute BL submassive PE
# Acute hypoxic respiratory insufficiency
# h/o VTE: PE post- , DVT post operatively 1 year ago, and now non-provoked submassive PE.
echo confirmed RH strain, EF 55-60%. Moderate/severe tricuspid regurgitation.
2L NC weaned back to RA, pt not on home O2
s/p thrombolysis per IR
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
Recc outpt Heme follow up for hypercoagulable work up
# Pulmonary parenchymal opacity bilaterally, likely a small focal areas of pulmonary infarction.
# associated slightly enlarged lymph nodes within the mediastinum, most likely reactive.
d/w IR, who recc outpt follow up with CT in 3 months to monitor lung opacity and LN to determine if findings are 2/2 PE vs other (e.g. underlying lung cancer)- pt and daughter informed
# Essential hypertension
resume DIRECTOR OF RETENTION antihypertensives lisinopril and amlodipine with hold parameter
# GERD
continue PPI
DVT ppx: Eliquis
Full Code
Dispo: PT Eval: likely no need
updated daughter on the phone
Anticipated Discharge: Today
Subjective/Interval History
-
Date of Service: December 03, 2024
Objective Data
-
Labs:
Laboratory Results
12/03/24
07:57
WBC Pending
Hgb Pending
Hct Pending
Plt Count Pending
Sodium Pending
Potassium Pending
Chloride Pending
Carbon Dioxide Pending
BUN Pending
Creatinine Pending
Glucose Pending
Calcium Pending
Vital Signs:
Vital Signs
Temp Pulse Resp BP Pulse Ox
36.8 C 74 18 138/68 93
12/03/24 03:46 12/03/24 03:46 12/03/24 03:46 12/03/24 03:46 12/03/24 03:46
I&O
12/02/24 12/03/24 12/04/24
06:59 06:59 06:59
Intake Total 313 / 313 1679 / 0
Output Total 600 / 600
Balance -287 / -287 1679 / 1679
Review of Systems
-
All other systems: Reviewed and negative
Physical Exam
-
General: Well Developed, Well Nourished, No Apparent Distress, Comfortable and Conversant
HEENT: Normocephalic and Atraumatic
Respiratory: Clear to Auscultation and Non Labored Respirations; Negative Accessory Resp Muscle Use
Cardiac: Regular Rhythm and S1/S2
GI: Soft and Nontender
Musculoskeletal: No Edema
Neuro: Awake, Alert and Oriented
Psych: Calm and Intact Judgement/Insight
Data Reviewed
-
CT Scan: Report Reviewed by me, Discussed with Physician (RICARDO), Discussed with Patient and Discussed with Family
Labs: Labs Reviewed by me
[2024-12-03 08:42] LABS: Hematocrit 37.2 % (37.0-47.0); Hemoglobin 12.2 g/dL (12.0-16.0); Mean Corp Hgb Conc. 32.8 g/dL (33.0-37.0); Mean Corpuscular Volume 85.5 fL (81.0-99.0); Mean Platelet Volume 9.7 fL (7.4-10.4); Platelet Count 222 10^3/uL (130-400); Red Blood Cell Count 4.35 10^6/uL (4.20-5.40); Red Cell Dist. Width 13.5 % (11.5-14.5); White Blood Cell Count 7.3 10^3/uL (4.8-10.8)
[2024-12-03] MEDS: ARICEPT 5 MG PO (08:45)
[2024-12-03] MEDS: ELIQUIS 10 MG PO (08:46)
[2024-12-03] MEDS: COLACE 100 MG PO (08:46)
[2024-12-03] MEDS: PROTONIX 40 MG PO (08:46)
--- NOTE | 2024-12-03 09:10 | CM ---
Addendum entered by Eloina Morley 12/03/24 12:07:
CM spoke w/ patient's daughter, Katia, regarding d/c today and recommendations. CM stated patient has HC order and if this would be something patient would benefit from. Katia shared that patient would benefit from VN and is agreeable to [facility]. CM
shared that patient will d/c on Eliquis, Katia stated she is aware and patient's pharmacy already has it ready. Katia shared patient was on Eliquis before for 6 months so she should be able to tolerate it. CM informed that a 30 day coupon was
provided to patient. Katia stated she already spoke w/ patient's nurse and will pick her up after she eats lunch.
CM placed [facility] referral in [facility], liaison made aware
Plan: Home w/ [facility]
Original Note:
Chart reviewed. Patient for d/c today
CM consulted for oakes check for Eliquis 5mg BID. CM called [facility], spoke w/ Saida. 30 day supply will be estimated cost of $155.60, 90 day supply, patient will have co-pay of $48. Updated hospitalist, requested for patient to be provided a 30
day Eliquis coupon.
CM spoke w/ patient who shared she was made aware of d/c today. CM asked patient if she is interested in HC services, she stated she doesn't know.
IMM verbally reviewed, patient given copy, copy placed on chart
Plan: Home; no needs
[2024-12-03 09:12] LABS: Blood Urea Nitrogen 19 mg/dl (7-17); Calcium 9.2 mg/dl (8.4-10.2); Carbon Dioxide 23 mmol/L (22-30); Chloride 108 mmol/L (98-107); Estimated Creatinine Clearance 60 ml/min; Glucose 101 mg/dl (70-99); Magnesium 1.8 mg/dl (1.6-2.3); Potassium 4.1 mmol/L (3.5-5.1); Sodium 141 mmol/L (135-145); eGFR > 60.00
[2024-12-03 11:00] VITALS: BP 141/65
--- NOTE | 2024-12-03 11:52 | W.DCSUMMARY ---
Discharge Summary
Discharge Data
Date of Admission: 11/30/24
Date of Discharge: 12/03/24
-
Pending Results: No
Hospital Course
Principal Diagnosis:
Acute bilateral submassive pulmonary embolism.
Resolved acute hypoxic respiratory insufficiency.
Pulmonary parenchymal opacity bilaterally, likely a small focal areas of pulmonary infarction. Associated slightly enlarged lymph nodes within the mediastinum, most likely reactive.
Chronic Diagnoses:�
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
Essential hypertension
GERD
Hyperlipidemia
History of bladder cancer,
Dementia,
Consultations:�
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
Interventional radiology
Procedures:�
Thrombolysis by IR
Clinical course:�
This is a 84-year-old female with past medical history as stated above, who presented with severe shortness of breath and dyspnea on exertion.
Problem 1:
Acute bilateral submassive pulmonary embolism.
This was associated with acute hypoxic respiratory insufficiency, which resolved.
She underwent thrombolysis per interventional radiologist.
She was started with heparin drip and this was transitioned to oral anticoagulation (Eliquis 10 mg twice daily for 7 days, followed by 5 mg twice daily indefinitely).
Her echo confirmed RH strain, EF 55-60%, Moderate/severe tricuspid regurgitation.
She was on 2L NC which was weaned back to room air.
She has been informed to follow-up with heme-onc outpatient for hypercoagulable work up.
Problem 2:
Her CT chest also noted pulmonary parenchymal opacity bilaterally, likely a small focal areas of pulmonary infarction.
This was associated slightly enlarged lymph nodes within the mediastinum, most likely reactive.
These findings were discussed with interventional radiologist, who recommend outpatient follow-up CT in 3 months to monitor the lung opacity and lymph node (to rule out lung cancer in setting of chronic smoking history).
The patient and her daughter were informed of this.
As for the rest of her medical problems, they were stable during her hospital stay.
Discharge Plan
-
Patient Disposition: Home with Home Care
Discharge Diagnosis/Procedures: Acute bilateral submassive pulmonary embolism status post thrombolysis by IR;
Acute hypoxic respiratory insufficiency- resolved
Condition: Fair
Diet: As tolerated
Activity: As tolerated
Driving Restrictions: Not until seen by your Dr
Others Tests: follow up CT Chest with contrast in 3 months to monitor the LLL consolidation and lymphadenopathy
Activity Restrictions/Additional Instructions:
Follow up with hematology for hypercoagulable work up
Referrals:
Seymour Saavedra MD [Active] - in one to two months (Needs follow up in about 3 months with Pulmonary clinic for Pulmonary Hypertension )
Antonio Mahmood CRNP [Family Provider] - in less than 1 week
Additional Discharge Medication Instructions: Take Eliquis 10 mg twice daily for 7 days, then 5 mg twice daily going forward
Prescriptions:
New
Eliquis 5 mg tablet
5 mg PO BID Qty: 240 0RF
Rx Instructions:
10 mg twice daily for 7 days, then 5 mg twice daily going forward
Continued
cholecalciferol (vitamin D3) [Vitamin D3] 25 mcg (1,000 unit) Tablet
50 mcg PO DAILY Qty: 0
calcium citrate 200 mg (950 mg) Tablet
200 mg PO DAILY Qty: 0
pravastatin 40 mg tablet
40 mg PO HS
multivitamin Tablet
1 tab PO DAILY
amlodipine 5 mg tablet
5 mg PO DAILY
donepezil 5 mg Tablet
5 mg PO DAILY
cetirizine [Zyrtec] 10 mg Tablet
10 mg PO HS
lisinopril 5 mg Tablet
5 mg PO BID
azelastine 137 mcg (0.1 %) [place],Non-Aerosol
2 spray INTRANASAL BID
Rx Instructions:
both nares
fluticasone propionate 50 mcg/actuation [place],Suspension
1 spray INTRANASAL DAILY
Rx Instructions:
both nares
omeprazole 20 mg Tablet,Delayed Release (Dr/Ec)
20 mg PO DAILY
Rx Instructions:
30 mins prior to breakfast
Gemtesa 75 mg Tablet
75 mg PO DAILY
Discharge Orders:
Discharge Patient (As Directed); Ordered 12/03/24
Ordered By: Linda Griffin
Discharge Date and Time
Print Language: MALDIVIAN
--- NOTE | 2024-12-03 12:28 | VNURNOTE ---
Home Health Liaison spoke with patient's daughter Katia to discuss [facility] nurse/therapy, visits, schedule and homebound status. She is agreeable and understands that visits at home will be 2-3 x per week to assess and teach medical management. Katia
is aware that [facility] will contact them for start of care in 1-2 days after discharge from .
[facility] referral completed in [facility].
== END 2024-12-03 14:39 | disposition home health service (06) | DRG 175 ==
LOC: 4 WEST ACU 20:29
PROVIDERS: Emergency Medicine; Nurse Practitioner Primary Care; Radiology Vascular & Interventional Radiology; ADMITTING PHYSICIAN Internal Medicine; ATTENDING PHYSICIAN Internal Medicine; EMERGENCY PHYSICIAN Emergency Medicine; FAMILY PHYSICIAN Nurse Practitioner Family; OTHER PHYSICIAN Internal Medicine
PROC: 3E06317 Introduction of Other Thrombolytic into Central Artery, Percutaneous Approach (ICD-10-PCS; 2024-11-30)
PROC: B31S1ZZ Fluoroscopy of Right Pulmonary Artery using Low Osmolar Contrast (ICD-10-PCS; 2024-11-30)
PROC: B31T1ZZ Fluoroscopy of Left Pulmonary Artery using Low Osmolar Contrast (ICD-10-PCS; 2024-11-30)
PROC: 4A033B3 Measurement of Arterial Pressure, Pulmonary, Percutaneous Approach (ICD-10-PCS; 2024-11-30)
DX: I26.99 Other pulmonary embolism without acute cor pulmonale (principal); J96.01 Acute respiratory failure with hypoxia; J98.11 Atelectasis; Z87.891 Personal history of nicotine dependence; Z86.718 Personal history of other venous thrombosis and embolism; I07.1 Rheumatic tricuspid insufficiency; I10 Essential (primary) hypertension; K21.9 Gastro-esophageal reflux disease without esophagitis; E78.00 Pure hypercholesterolemia, unspecified; Z85.51 Personal history of malignant neoplasm of bladder; F03.A0 Unspecified dementia, mild, without behavioral disturbance, psychotic disturbance, mood disturbance, and anxiety; Z88.2 Allergy status to sulfonamides; Z88.5 Allergy status to narcotic agent; Z11.52 Encounter for screening for COVID-19; Z86.711 Personal history of pulmonary embolism
CPT/HCPCS: 36014; 36620; 37211; 37214; 71046; 71275; 75743; 76937; 80048; 80053; 83735; 83880; 84484; 85025; 85027; 85610; 85730; 87502; 87811; 93005; 93306; 96374; 97162; 99152; 99153; 99285; C1769; J2997; Q9967

== ENCOUNTER → 2025-03-08 08:17 | Outpatient (REF) | payer OTHER, SELFPAY ==
[2025-03-08 12:12] LABS: D-Dimer 0.68 ug/mlFEU (0.00-0.50)
[2025-03-08 13:46] LABS: Blood Urea Nitrogen 21 mg/dl (7-17)
[2025-03-10 07:49] LABS: Cardiolipin IgA Antibody <10 APL (<=11); Cardiolipin IgM Antibody <10 MPL (<=12); Cardiolipin Igg Antibody <10 GPL (<=14)
[2025-03-10 12:46] LABS: Protein S Total Antigen 142 % (63-126)
[2025-03-10 13:34] LABS: Anti-Xa Qualitative Interp Present (Not Present); Anticoagulant Med Neutralizati DOAC-Stop (Not Performed); Hexagonal Phospholipid Confirm Not Performed s (<=7.9); Neutralized PTT-LA Ratio Not Performed (<=1.20); Neutralized dRVTT Screen Ratio 0.93 (<=1.20); Prothrombin Time 13.9 s (12.0-15.5); Thrombin Time Not Performed s (<=19.5); dRVTT 1.1 Mix Ratio Not Performed (<=1.20); dRVTT Confirmation Ratio Not Performed (<=1.20); dRVTT Screen Ratio 1.28 (<=1.20)
[2025-03-10 20:19] LABS: Anti-Thrombin III Activity 95 % (76-128)
== END ==
LOC: HWLAB 08:17
PROVIDERS: ATTENDING PHYSICIAN Internal Medicine Hematology & Oncology; FAMILY PHYSICIAN Nurse Practitioner Family
DX: I26.99 Other pulmonary embolism without acute cor pulmonale (principal)
CPT/HCPCS: 36415; 81240; 81241; 82565; 84520; 85300; 85305; 85379; 85610; 85613; 85730; 86147

== ENCOUNTER → 2025-03-22 14:54 | Outpatient (REF) | payer OTHER, SELFPAY | LOC: RCS 14:54 | PROVIDERS: ATTENDING PHYSICIAN Nurse Practitioner Family; FAMILY PHYSICIAN Nurse Practitioner Family | DX: Z86.711 Personal history of pulmonary embolism (principal); R06.02 Shortness of breath; R93.89 Abnormal findings on diagnostic imaging of other specified body structures | CPT/HCPCS: 71260; 93306; Q9967 ==

== ENCOUNTER → 2025-04-29 10:12 | Outpatient (REF) | payer OTHER, SELFPAY ==
[2025-04-29 10:32] LABS: Hematocrit 41.0 % (37.0-47.0); Hemoglobin 13.5 g/dL (12.0-16.0); Mean Corp Hgb Conc. 32.9 g/dL (33.0-37.0); Mean Corpuscular Volume 84.5 fL (81.0-99.0); Nucleated Red Blood Cells % 0 %; Platelet Count 278 10^3/uL (130-400); Red Cell Dist. Width 13.3 % (11.5-14.5)
[2025-04-29 10:40] VITALS: BP 135/49; BP_SYST 70
[2025-04-29 10:40] LABS: INR 0.99; PT 13.4 Sec (11.4-14.6)
[2025-04-29 12:05] VITALS: BP 107/49; BP_SYST 64
[2025-04-29 12:10] VITALS: BP 101/49; BP_SYST 64
[2025-04-29 12:15] VITALS: BP 100/58; BP_SYST 70
[2025-04-29 12:30] VITALS: BP 121/59
== END ==
LOC: RADI 10:12
PROVIDERS: ATTENDING PHYSICIAN Internal Medicine Hematology & Oncology; FAMILY PHYSICIAN Nurse Practitioner Family; REFERRING PHYSICIAN Physician Assistant
DX: C77.0 Secondary and unspecified malignant neoplasm of lymph nodes of head, face and neck (principal); D68.8 Other specified coagulation defects; Z85.51 Personal history of malignant neoplasm of bladder; C34.90 Malignant neoplasm of unspecified part of unspecified bronchus or lung
CPT/HCPCS: 36415; 38505; 76942; 81459; 85025; 85610; 88305; 88333; 88341; 88342; 88360; 99152; 99153

== ENCOUNTER 2025-07-23 19:49 | Observation (INO) | payer OTHER, SELFPAY ==
[2025-07-23] VITALS (9 sets, daily range): BP systolic 98–145; BP diastolic 41–96; BMI 33.3
[2025-07-23] MEDS: LR 1000 IV ×2 (15:09→21:05)
[2025-07-23 15:15] LABS: Hematocrit 43.7 % (37.0-47.0); Hemoglobin 14.1 g/dL (12.0-16.0); Mean Corp Hgb Conc. 32.3 g/dL (33.0-37.0); Mean Corpuscular Volume 87.6 fL (81.0-99.0); Nucleated Red Blood Cells % 0 %; Platelet Count 311 10^3/uL (130-400); Red Cell Dist. Width 13.6 % (11.5-14.5)
[2025-07-23 15:32] LABS: ALT (SGPT) 21 U/L (0-35); AST (SGOT) 29 U/L (14-36); Albumin 4.3 g/dl (3.5-5.0); Alkaline Phosphatase 124 U/L (38-126); Blood Urea Nitrogen 20 mg/dl (7-17); Calcium 9.7 mg/dl (8.4-10.2); Carbon Dioxide 22 mmol/L (22-30); Chloride 107 mmol/L (98-107); Glucose 137 mg/dl (70-99); Lipase 184 U/L (23-300); Potassium 4.4 mmol/L (3.5-5.1); Sodium 140 mmol/L (135-145); Total Protein 8.6 g/dl (6.3-8.2); eGFR 49.86
--- NOTE | 2025-07-23 15:39 | ED.GENMED ---
History of Present Illness
<Esa Tolliver PA-C - Last Filed: 07/24/25 07:29>
General
Chief Complaint: Abdominal Symptoms
Time Seen by Provider: 07/23/25 14:59
History of Present Illness
History of Present Illness:
85-year-old female with history of metastatic lung cancer and questionable COPD presents to the emergency department for evaluation of intermittent diarrhea for the past 2 to 3 days, diarrhea increased in volume today and the patient has been
profoundly weak and lethargic according to her daughter. The patient does have some cognitive dysfunction, indicates to me that her cough during exam is chronic however the daughter feels this has been worsening. No reported hematemesis or
melanotic stool. No recent antibiotics.
Past History
<Esa Tolliver PA-C - Last Filed: 07/24/25 07:29>
Past History
ED Past Medical History: Cancer (Bladder CA), GERD, HTN, Hypercholesterolemia and Other (PE/DVT)
ED Past Surgical History: Orthopedic (Right rotator cuff, Right femur repair, ) and Tonsilectomy
Social History
Tobacco: Former smoker (1/2ppd)
Alcohol: None
Drug: None
Personal:
Living: with family
Review of Systems
<Esa Tolliver PA-C - Last Filed: 07/24/25 07:29>
Review of Systems
Allergies reviewed?: Yes
All Other Systems: ROS reviewed and negative except as documented in HPI and ROS
Phy Exam
<Esa Tolliver PA-C - Last Filed: 07/24/25 07:29>
Physical Exam
Physical Exam:
GEN: Well appearing, NAD, WDWN
HEENT: Oral mucosa moist, no scleral icterus
Cardiac: Regular rate and rhythm
Lung: No respiratory distress, no tachypnea, rhonchi in the bases bilaterally, no wheezes
Abdomen: Soft, mild suprapubic tenderness, no rigidity
MSK: No gross deformity or injuries
Skin: Good color, no pallor or jaundice, no rashes
Neuro: Alert but fatigued, follows commands, pleasantly confused
Psych: Calm, cooperative
Course
<Esa Tolliver PA-C - Last Filed: 07/24/25 07:29>
Orders/Labs/Results
Orders:
Orders
07/23/25 15:05
Lactated Ringers [Lr] 1,000 ml IV BOLUS
07/23/25 15:08
Complete Blood Count/With Diff Urgent
Comprehensive Metabolic Panel Urgent
Lipase Urgent
07/23/25 15:37
CR Chest - 2 Views Urgent
Comment:
Reason For Exam: cough
07/23/25 16:19
COVID-19 Antigen Urgent
Source: Nasal Swab
07/23/25 17:09
NT-proBNP Urgent
07/23/25 17:49
CT Abd/Pel (IV only)-[facility] only Urgent
Comment:
Reason For Exam: diarrhea, abd pain
07/23/25 17:58
Stool Culture Urgent
LINDA Source: Feces/Stool
Specimen Description:
Date Specimen was Collected: 07/23/25
Time Specimen was Collected: 17:56
07/23/25 19:37
Admit/Transfer Patient As Directed
Co-Sign Provider:
Level of Care: Observation services
Assign to:: Medical/Surgical
Physician / Group: virgilio
Diagnosis: Gastroenteritis
Code Status As Directed
Resuscitation Status: Do not resuscitate
Reached after discussion with pt or family/Healthcare POA: Yes
PRN Pain Medication Management As Directed
May give lesser potent ordered pain med per pt: Yes
preference::
Protocol:: Medication orders for pain may be administered in a
manner that supports deferring to patient preference
when the pt is:
- Requesting an ordered lesser potent pain medication.
Least to most potent pain medications are defined
as: acetaminophen < NSAID < tramadol < opioids
(morphine, oxycodone, hydromorphone).
- Requesting a lesser dose of the same medication IF
ORDERED.
- Requesting a less intrusive route of administration
if both routes are prescribed by the provider (PO <
IV).
07/23/25 19:38
DNR Bracelet Application ONCE
07/23/25 20:46
Acetaminophen [Tylenol] 650 mg PO Q4HPRN PRN
Lactated Ringers [Lr] 1,000 ml IV 120 mls/hr
Ondansetron Injectable [Zofran] 4 mg IV Q6HPRN PRN
07/23/25 20:46
VTE Contraindication Routine
VTE Mechanical Device Contraindication: Medical Contraindication
Pharmocologic Contraindication: Medical Contraindication
Activity As Directed
Activity Level: With Assistance
Vital Signs As Directed
Frequency: Per unit guidelines
Pulse Ox/spot Check [RESP] Routine
Quantity: 1
07/23/25 21:00
Ketorolac [Toradol] 10 mg IV Q6HPRN PRN
Losartan [Cozaar] 25 mg PO BID
07/23/25 21:30
Apixaban [Eliquis] 5 mg PO BID
07/23/25 22:00
Cetirizine HCl [Zyrtec] 10 mg PO HS
Pravastatin Sodium [Pravachol] 40 mg PO HS
07/24/25 Breakfast
Regular
At Your Request: Full Participation
Does patient need a safe tray?: No
Basic Metabolic Panel IN AM
Complete Blood Count/No Diff IN AM
Magnesium IN AM
07/24/25 08:00
Amlodipine [Norvasc] 5 mg PO DAILY
Donepezil [Aricept] 5 mg PO DAILY
Pantoprazole [Protonix] 40 mg PO DAILY
Abnormal Lab Results
07/23/25
15:08
WBC 14.5 H 10^3/uL
(4.8-10.8)
MCHC 32.3 L g/dL
(33.0-37.0)
Absolute Neuts (auto) 12.1 H 10^3/uL
(1.4-6.5)
Absolute Lymphs (auto) 0.9 L 10^3/uL
(1.2-3.4)
Absolute Monos (auto) 1.2 H 10^3/uL
(0.1-0.6)
Neutrophils % 83.1 H %
(42.2-75.2)
Lymphocytes % 6.4 L %
(20.5-51.1)
BUN 20 H mg/dl
(7-17)
Creatinine 1.1 H mg/dL
(0.6-1.0)
Glucose 137 H mg/dl
(70-99)
Total Protein 8.6 H g/dl
(6.3-8.2)
07/23/25 15:08
07/23/25 15:08
Vital Signs
Initial and Last Documented VS:
Initial Vital Signs
Pulse Resp BP Pulse Ox
87 34 108/96 97
07/23/25 15:00 07/23/25 15:00 07/23/25 15:00 07/23/25 15:00
Last Documented Vital Signs
Temp Pulse Resp BP Pulse Ox
98.9 F 77 18 124/60 95
07/23/25 23:00 07/23/25 23:00 07/23/25 23:00 07/23/25 23:00 07/23/25 23:00
<Esa Casey MD - Last Filed: 07/23/25 18:34>
Orders/Labs/Results
Orders:
Orders
07/23/25 15:05
Lactated Ringers [Lr] 1,000 ml IV BOLUS
07/23/25 15:08
Complete Blood Count/With Diff Urgent
Comprehensive Metabolic Panel Urgent
Lipase Urgent
07/23/25 15:37
CR Chest - 2 Views Urgent
Comment:
Reason For Exam: cough
07/23/25 16:19
COVID-19 Antigen Urgent
Source: Nasal Swab
07/23/25 17:09
NT-proBNP Urgent
07/23/25 17:49
CT Abd/Pel (IV only)-[facility] only Urgent
Comment:
Reason For Exam: diarrhea, abd pain
07/23/25 17:58
Stool Culture Urgent
LINDA Source: Feces/Stool
Specimen Description:
Date Specimen was Collected: 07/23/25
Time Specimen was Collected: 17:56
07/23/25 19:37
Admit/Transfer Patient As Directed
Co-Sign Provider:
Level of Care: Observation services
Assign to:: Medical/Surgical
Physician / Group: [email or web address]
Diagnosis: Gastroenteritis
Code Status As Directed
Resuscitation Status: Do not resuscitate
Reached after discussion with pt or family/Healthcare POA: Yes
PRN Pain Medication Management As Directed
May give lesser potent ordered pain med per pt: Yes
preference::
Protocol:: Medication orders for pain may be administered in a
manner that supports deferring to patient preference
when the pt is:
- Requesting an ordered lesser potent pain medication.
Least to most potent pain medications are defined
as: acetaminophen < NSAID < tramadol < opioids
(morphine, oxycodone, hydromorphone).
- Requesting a lesser dose of the same medication IF
ORDERED.
- Requesting a less intrusive route of administration
if both routes are prescribed by the provider (PO <
IV).
07/23/25 19:38
DNR Bracelet Application ONCE
07/23/25 20:46
Acetaminophen [Tylenol] 650 mg PO Q4HPRN PRN
Lactated Ringers [Lr] 1,000 ml IV 120 mls/hr
Ondansetron Injectable [Zofran] 4 mg IV Q6HPRN PRN
07/23/25 20:46
VTE Contraindication Routine
VTE Mechanical Device Contraindication: Medical Contraindication
Pharmocologic Contraindication: Medical Contraindication
Activity As Directed
Activity Level: With Assistance
Vital Signs As Directed
Frequency: Per unit guidelines
Pulse Ox/spot Check [RESP] Routine
Quantity: 1
07/23/25 21:00
Ketorolac [Toradol] 10 mg IV Q6HPRN PRN
Losartan [Cozaar] 25 mg PO BID
07/23/25 21:30
Apixaban [Eliquis] 5 mg PO BID
07/23/25 22:00
Cetirizine HCl [Zyrtec] 10 mg PO HS
Pravastatin Sodium [Pravachol] 40 mg PO HS
07/24/25 Breakfast
Regular
At Your Request: Full Participation
Does patient need a safe tray?: No
Basic Metabolic Panel IN AM
Complete Blood Count/No Diff IN AM
Magnesium IN AM
07/24/25 08:00
Amlodipine [Norvasc] 5 mg PO DAILY
Donepezil [Aricept] 5 mg PO DAILY
Pantoprazole [Protonix] 40 mg PO DAILY
Abnormal Lab Results
07/23/25
15:08
WBC 14.5 H 10^3/uL
(4.8-10.8)
MCHC 32.3 L g/dL
(33.0-37.0)
Absolute Neuts (auto) 12.1 H 10^3/uL
(1.4-6.5)
Absolute Lymphs (auto) 0.9 L 10^3/uL
(1.2-3.4)
Absolute Monos (auto) 1.2 H 10^3/uL
(0.1-0.6)
Neutrophils % 83.1 H %
(42.2-75.2)
Lymphocytes % 6.4 L %
(20.5-51.1)
BUN 20 H mg/dl
(7-17)
Creatinine 1.1 H mg/dL
(0.6-1.0)
Glucose 137 H mg/dl
(70-99)
Total Protein 8.6 H g/dl
(6.3-8.2)
07/23/25 15:08
07/23/25 15:08
Vital Signs
Initial and Last Documented VS:
Initial Vital Signs
Pulse Resp BP Pulse Ox
87 34 108/96 97
07/23/25 15:00 07/23/25 15:00 07/23/25 15:00 07/23/25 15:00
Last Documented Vital Signs
Temp Pulse Resp BP Pulse Ox
98.9 F 77 18 124/60 95
07/23/25 23:00 07/23/25 23:00 07/23/25 23:00 07/23/25 23:00 07/23/25 23:00
<Esa Tolliver PA-C - Last Filed: 07/24/25 07:29>
MDM/Problems Addressed
MDM/Problems Addressed:
Patient remains markedly fatigued and weak despite IV hydration. She is not suitable for discharge home. Will obtain CT scan for completeness to evaluate for colitis however this is overwhelmingly likely to be viral gastroenteritis versus
foodborne pathogen. Stool culture will be obtained if possible. Will plan to admit pending CT scan, will sign out to Dr Casey pending imaging/dispo
<Esa Tolliver PA-C - Last Filed: 07/24/25 07:29>
*Pulse Oximetry
SaO2: 97
Oxygen Mode of Delivery: Room air
Patient hypoxic: no
*Critical Care Note
Total Time (30-74mins, 75-104mins- exclusive of procedures): Not Applicable
ED Attending Note
<Esa Tolliver PA-C - Last Filed: 07/24/25 07:29>
-
Portions of this chart may have been created with voice recognition software.� Occasional wrong word or��sound alike� substitutions may have occurred due to the inherent limitations of voice recognition software.
<Esa Casey MD - Last Filed: 07/23/25 18:34>
ED Attending Note
Patient seen and examined by attending physician: Yes
ED Attending Note:
I have seen and evaluated the patient with a [id number] encounter. I have spoken to the advance practicer provider and involved in the medical history, the physical exam, medical decision making.
Evaluation and management service: agree unless noted differently below.
Results interpretation: agree unless noted differently below.
Focused HPI: 85-year-old female with history of dementia, hypertension, hyperlipidemia, PE, COPD/emphysema, lung cancer who presents to the emergency department with her daughter for evaluation of generalized weakness and GI symptoms. It sounds
like symptoms developed over the past 24 hours of nausea, spitting up mucus, nonbloody diarrhea. Patient has had some lower abdominal discomfort. Very weak and fatigued. Brought to the ER for evaluation. Daughter says she has a cough but that
this is chronic and not acutely changed.
Physical exam: Awake and alert, generally weak appearing. Mild tachypnea, no fever, normotensive with heart rate in the 80s. No hypoxia. Abdomen is soft and nondistended with mild tenderness in the lower abdomen but no peritoneal signs or masses.
Faint rales at the lung bases. No edema in the legs.
Medical Decision Makin-year-old female presents with generalized weakness in the setting of recent GI symptoms over the past 24 hours. Vitals and exam as above. Labs were significant for leukocytosis and acute kidney injury. COVID and flu
swabs were negative. She was sent for chest x-rays which showed no acute abnormalities. CT abdomen is pending. Suspect likely viral enteritis with dehydration plan likely for admission pending CT.
Discharge Plan
Departure
Patient Disposition: Admit
Date of Disposition: 07/23/25
Time of Disposition: 19:07
Admit to doctor: Virgilio
Presentation/result/management discussed w/ accepting MD/DO: Hospitalist
Discharge Problem:
Diarrhea, Acute dehydration, Weakness
Interventions
Interventions:
*Risk Screen - Suicide Last Done: 07/23/25 15:01
*General Assessment Last Done: 07/23/25 15:01
*Neglect/Abuse Screening Last Done: 07/23/25 15:01
*ED- Fall Risk Assessment Last Done: 07/23/25 15:01
*ED COVID-19 Vaccine History Last Done: 07/23/25 15:01
*ED Influenza Vaccine History Last Done: 07/23/25 15:01
*Nursing Disposition Last Done: 07/23/25 20:31
UO-Xxdxan-Jddzdrifqd Assessment Last Done: 07/23/25 19:19
Discharge Date and Time
Discharge Date/Time: 07/23/25 20:31
[2025-07-23 16:48] LABS: COVID-19 Antigen Negative (Negative)
--- NOTE | 2025-07-23 19:14 | HPS.HSE ---
Family Physician
-
Family Physician: RACHEL Augustine
Chief Complaint
-
Diarrhea
History of Present Illness
Patient is a 85-year-old female with past medical history significant for venous thromboembolism, GERD, hypertension, hypertension, dementia, lung cancer for which she is being followed in palliative care presenting to the emergency department with
weakness and diarrhea.
According to family member the symptoms began this afternoon. She was in usual state of health the previous day. She had been seen by a physician about 4 days ago, had flu vaccine, nasal sprays with discontinued although this resulted in rebound
nasal congestion and coughing. She had diarrhea on . Disease and then she had another small episode of diarrhea on Friday. She took Imodium on Friday and did not have any further diarrhea up until 1 PM on Friday. Daughter reported that
she is sleeping at least 30 minutes on the commode having loose watery stools that was nonbloody and was foul-smelling. Patient reports nausea but no vomiting. She had additional diarrhea thereafter. She was again given Imodium. She has not been
having further diarrhea in the emergency department. Family denies any fevers or chills. She denies any urinary symptoms. She has a chronic minimally productive cough.
Has known history of lung cancer with emphysema, chronic nonproductive cough which is unchanged. Denies any stool contact. Denies fevers or chills.
In the emergency department patient was afebrile, blood pressure was 122/60 with a pulse of 91 and he was satting 96% on room air. Chest x-ray was clear. CBC shows a white count of 14.5 but otherwise hemoglobin 14.1 and plate count of 311.
Electrolytes BUN/creatinine were in the normal range. Lipase was negative LFTs were unremarkable. CT of the abdomen pelvis shows known bilateral lower lobe masses and no acute intra-abdominal process.
Medical History
Past Medical History
Past Medical History: Reports Cancer (lung Ca), GERD, HTN and Other
Past Surgical History: Reports Other (ORIF)
Social History
Unable to obtain full social history at this time due to: Other
Tobacco: Former Smoker
Alcohol: None
Drug: None
Personal: Single
Living: With Family
Employment: Retired
Family History
Family History: Not pertinent and Other
Allergies / Home Medications
Allergies reflects when Allergies were last updated in [employer]
Home Medications with original date entered in [employer]
Allergy/Medication List:
Allergies
Allergy/AdvReac Type Severity Reaction Status Date / Time
morphine Allergy Hives Verified 11/30/24 15:49
Sulfa (Sulfonamide Allergy Rash Verified 11/30/24 15:49
Antibiotics)
Home Medications
calcium citrate 200 mg PO DAILY Supplement ##0 09/08/23
cholecalciferol (vitamin D3) 25 mcg (1,000 unit) tablet (Vitamin D3) 50 mcg PO DAILY Supplement ##0 09/08/23
amlodipine 5 mg tablet 5 mg PO DAILY Blood Pressure 11/17/23
multivitamin 1 tab PO DAILY Supplement 11/17/23
pravastatin 40 mg tablet 40 mg PO HS High Cholesterol 11/17/23
azelastine 137 mcg (0.1 %) nasal spray 2 spray intranasal BID 11/30/24
cetirizine 10 mg tablet (Zyrtec) 10 mg PO HS 11/30/24
donepezil 5 mg tablet 5 mg PO DAILY 11/30/24
fluticasone propionate 50 mcg/actuation nasal spray,suspension 1 spray intranasal DAILY 11/30/24
lisinopril 5 mg tablet 5 mg PO BID 11/30/24
omeprazole 20 mg tablet,delayed release 20 mg PO DAILY 11/30/24
vibegron 75 mg tablet (Gemtesa) 75 mg PO DAILY 11/30/24
Review of Systems
-
History Source: Family
Constitutional: Reports No Symptoms
EENT: Reports No Symptoms
Respiratory: Reports No Symptoms
Cardiac: Reports No Symptoms
Abdomen/GI: Reports Nausea, Vomiting and Diarrhea
: Reports No Symptoms
Musculoskeletal: Reports No Symptoms
Skin: Reports No Symptoms
Neurological: Reports No Symptoms
Endocrine: Reports No Symptoms
Hematologic/Lymphatic: Reports No Symptoms
Psych: Reports No Symptoms
Physical Exam
Vital Signs
Vital Signs
Temp Pulse Resp BP Pulse Ox
97.4 F 91 22 122/63 96
07/23/25 15:01 07/23/25 18:30 07/23/25 18:30 07/23/25 17:00 07/23/25 18:30
Physical Exam
General: No Apparent Distress and Comfortable
HEENT: NormoCephalic, Anicteric, Moist mucous membranes, Atraumatic and Oxygen
Respiratory: Clear
Cardiac: S1/S2, Regular Rhythm and Tachycardia; No Murmur, Rub, Gallop, Peripheral Edema or JVD
Breast: Deferred by me
GI: Soft, Non Tender, Non Distended and Normal Bowel Sounds
Rectal: Deferred by Provider
Genito-urinary: Deferred by me
Musculoskeletal: No Clubbing, No Cyanosis and No Edema
Skin: Warm
Neuro: AO x 3 and Nonfocal/grossly intact
Hematologic/Lymphatic: No Lymphadenopathy
Psych: Calm
Laboratory Results
-
07/23/25 15:08
07/23/25 15:08
Laboratory Results
Total Bilirubin 1.0 mg/dl (0.2-1.3) 07/23/25 15:08
AST 29 U/L (14-36) 07/23/25 15:08
ALT 21 U/L (0-35) 07/23/25 15:08
Alkaline Phosphatase 124 U/L (38-126) 07/23/25 15:08
Lipase 184 U/L (23-300) 07/23/25 15:08
Data Reviewed
-
Diagnostic Radiology: Image Personally Visualized and interpreted and Report Reviewed by me
CT Scan: Report Reviewed by me
Lab Data: Labs Reviewed by me
Old Records: Reviewed
Impression/Plan
-
IMPRESSION:
84-year-old female with past medical history significant for lung cancer, dementia, pulmonary embolism, GERD and hypertension presenting to the emergency department with acute episode of diarrhea x 1 day. Multiple loose watery stools,
foul-smelling. He is hemodynamically stable and afebrile. White count was 14.5. Rest of labs were mostly unremarkable. LFTs and lipase were normal. CT of the abdomen pelvis showed no acute findings. No recent antibiotic use. She is frequently
in the emergency department. No known history of C. difficile
PLAN:
Diarrhea -likely gastroenteritis without any systemic findings at this time.
- [facility]
- Stool studies have been sent and pending
-Patient is afebrile and hemodynamically stable, will hold off on any antibiotic
-Supportive measures with IV fluids, antiemetics and pain medications
-If Cdiff negative, will start antidiarrheal agents
Pulmonary embolism
-Continue Eliquis
Hypertension
- Continue losartan 100 mg twice daily for now
- Continue amlodipine
GERD
- continue omeprazole pending C. difficile
Lung cancer -no interventions or additional treatments. Patient is followed by by palliative.
DVT prophylaxis�on apixaban
CODE STATUS�DNR
--- NOTE | 2025-07-23 20:00 | PTCARENOTE ---
Pt arrived to unit from ED, pullover from stretcher to bed. AAOx3, VSS. Pt oriented to room with call sullivan in reach.
[2025-07-23] MEDS: PRAVACHOL 40 MG PO (21:04)
[2025-07-23] MEDS: COZAAR 25 MG PO (21:04)
[2025-07-23] MEDS: ZYRTEC 10 MG PO (21:05)
[2025-07-23] MEDS: ELIQUIS 5 MG PO (21:30)
[2025-07-24] MEDS: LR 1000 IV ×2 (05:09→16:23)
[2025-07-24 07:00] VITALS: BP 142/72
[2025-07-24] MEDS: ARICEPT 5 MG PO (08:04)
[2025-07-24] MEDS: COZAAR 25 MG PO ×2 (08:04→19:39)
[2025-07-24] MEDS: NORVASC 5 MG PO (08:04)
[2025-07-24] MEDS: PROTONIX 40 MG PO (08:05)
[2025-07-24] MEDS: ELIQUIS 5 MG PO ×2 (08:05→19:39)
[2025-07-24 08:16] LABS: Hematocrit 35.4 % (37.0-47.0); Hemoglobin 11.5 g/dL (12.0-16.0); Mean Corp Hgb Conc. 32.5 g/dL (33.0-37.0); Mean Corpuscular Volume 84.9 fL (81.0-99.0); Platelet Count 264 10^3/uL (130-400); Red Cell Dist. Width 13.9 % (11.5-14.5)
[2025-07-24 09:10] LABS: Blood Urea Nitrogen 18 mg/dl (7-17); Calcium 8.9 mg/dl (8.4-10.2); Carbon Dioxide 23 mmol/L (22-30); Chloride 109 mmol/L (98-107); Estimated Creatinine Clearance 53 ml/min; Glucose 83 mg/dl (70-99); Magnesium 1.8 mg/dl (1.6-2.3); Potassium 4.0 mmol/L (3.5-5.1); Sodium 138 mmol/L (135-145); eGFR > 60.00
--- NOTE | 2025-07-24 10:03 | CM ---
manager outpatient reviewed patient's chart and met with patient and patient lives with daughter in a multilevel home with one step to enter, patient is independent with adl's and uses a cane with ambulation, patient would benefit from PT/OT to assist
with discharge planning needs.
PCP: Antonio Mahmood
Pharmacy: [facility] in [facility]
[2025-07-24] MEDS: OCEAN, SALINE MIST 1 SPRAYS NASAL (12:39)
--- NOTE | 2025-07-24 14:22 | W.PN.HOSP.TC ---
Addendum entered and electronically signed by Jackson Valdovinos MD 07/24/25 14:40:
Awake alert
Confused pleasant
Cardiovascular system S1-S2 appreciated
Chest clear to auscultation
Abdomen soft and nontender, bowel sounds present
Original Note:
Today's Communication/Plan
-
Patient is much more awake and alert per daughter now.
PT OT consulted
Continue with the diet
If doing well in PT OT can be discharged . Discussed with patient's daughter agreeable with the plan
Assessment / Plan
Assessment / Plan
85-year-old female presented with diarrhea and weakness
CT of the abdomen and pelvis-no acute pathology. Known bilateral lower lobe pulmonary mass. Moderate retrocrural lymphadenopathy. Bilateral too small to characterize hypodense renal lesions likely cyst. Simple right renal cyst. Moderate
atherosclerotic vascular disease, stable
Echo 03/22/2024-normal biventricular size and systolic function. Moderate TR. PA pressure 35 to 40 mmHg
# Diarrhea
Likely acute gastroenteritis
No more bowel movements here. C. difficile is negative.
Cultures are pending
Continue with the diet and see how the patient does
# Acute kidney injury-likely secondary diarrhea-stop fluids
# History of pulmonary embolism-continue Eliquis
# Hypertension-continue Losartan, Amlodipine
# Hyperlipidemia-continue statin
# History of non-small cell lung cancer not on treatment -followed by palliative care .Diagnosed in March 2025
# COPD-continue as needed treatments
# Dementia-continue Aricept
# GERD-continue PPI
# Ex-smoker
# DVT prophylaxis-Eliquis
# DNR
Discussed with daughter and updated
Part of this note was created using voice recognition system. Occasional wrong word or��sound alike� substitutions may have inadvertently occurred due to the inherent limitations of voice recognition software. If noted kindly bring it to my
attention for correction.
Anticipated Discharge: Within 24 hours
Subjective/Interval History
-
Date of Service: July 24, 2025
Objective Data
-
Labs:
Laboratory Results
07/24/25
07:32
WBC 7.0
Hgb 11.5 L
Hct 35.4 L
Plt Count 264
Sodium 138
Potassium 4.0
Chloride 109 H
Carbon Dioxide 23
BUN 18 H
Creatinine 0.8
Glucose 83
Calcium 8.9
Vital Signs:
Vital Signs
Temp Pulse Resp BP Pulse Ox
97.9 F 78 20 142/72 94
07/24/25 07:00 07/24/25 08:04 07/24/25 07:00 07/24/25 08:04 07/24/25 07:00
I&O
07/23/25 07/24/25 07/25/25
06:59 06:59 06:59
Intake Total 480 / 480
Balance 480 / 480
[2025-07-24 16:02] VITALS: BP 132/63
[2025-07-24 19:36] VITALS: BP 134/63
[2025-07-24] MEDS: ZYRTEC 10 MG PO (21:01)
[2025-07-24] MEDS: PRAVACHOL 40 MG PO (21:01)
[2025-07-24 23:22] VITALS: BP 142/68
[2025-07-25] MEDS: LR 1000 IV (00:52)
[2025-07-25 07:07] VITALS: BP 149/83
[2025-07-25] MEDS: PROTONIX 40 MG PO (09:01)
[2025-07-25] MEDS: COZAAR 25 MG PO ×2 (09:01→20:55)
[2025-07-25] MEDS: NORVASC 5 MG PO (09:02)
[2025-07-25] MEDS: ARICEPT 5 MG PO (09:02)
[2025-07-25] MEDS: ELIQUIS 5 MG PO ×2 (09:02→20:55)
[2025-07-25 09:54] VITALS: BP 137/74; O2SAT 97
[2025-07-25 09:57] VITALS: BP 131/72; PULSE 90; O2SAT 97
--- NOTE | 2025-07-25 10:00 | VATNOTE ---
IV infiltrate to L FA. Golf ball size swelling noted. IV fluids stopped. L FA PIV removed. Extremity elevated and heat applied. IVF restarted in R AC PIV.
--- NOTE | 2025-07-25 10:16 | W.PN.HOSP.TC ---
Today's Communication/Plan
-
anticipate DC tomorrow
PT/OT
fluids off
IV pepcid for reflux symptoms
Assessment / Plan
Assessment / Plan
84-year-old female with past medical history significant for lung cancer, dementia, pulmonary embolism, GERD and hypertension presenting to the emergency department with acute episode of diarrhea x 1 day. Multiple loose watery stools. Found to
have leukocytosis, CT without acute pathology. C. Diff negative
CT of the abdomen and pelvis-no acute pathology. Known bilateral lower lobe pulmonary mass. Moderate retrocrural lymphadenopathy. Bilateral too small to characterize hypodense renal lesions likely cyst. Simple right renal cyst. Moderate
atherosclerotic vascular disease, stable
Echo 03/22/2024-normal biventricular size and systolic function. Moderate TR. PA pressure 35 to 40 mmHg
Acute Gastroenteritis
-C. Diff negative
-awaiting stool cultures
-overall clinically improving, remains with some abdominal upset
-change to low lactose diet
-observe another 24 hours
# Acute kidney injury
-responsive to IVF, fluids now stopped
# History of pulmonary embolism-continue Eliquis
# Hypertension-continue Losartan, Amlodipine
# Hyperlipidemia-continue statin
# History of non-small cell lung cancer not on treatment -followed by palliative care .Diagnosed in March 2025
# COPD-continue as needed treatments
# Dementia-continue Aricept
# GERD-continue PPI
# Ex-smoker
# DVT prophylaxis-Eliquis
# DNR
Anticipated Discharge: 24 - 48 hours
Subjective/Interval History
-
Date of Service: July 25, 2025
some reflux while eating and mild abdominal cramping
doesn't feel comfortable going home today
no vomiting
no further diarrhea
Objective Data
-
Vital Signs:
Vital Signs
Temp Pulse Resp BP Pulse Ox
97.6 F 71 20 149/83 92
07/25/25 07:07 07/25/25 09:02 07/25/25 07:07 07/25/25 09:02 07/25/25 07:07
I&O
07/24/25 07/25/25 07/26/25
06:59 06:59 06:59
Intake Total 480 / 480 1200 / 1200
Balance 480 / 480 1200 / 1200
Review of Systems
-
History Source: Patient
All other systems: Reviewed and negative
Physical Exam
-
General: No Apparent Distress
HEENT: Normocephalic and Atraumatic
Respiratory: Clear to Auscultation and Non Labored Respirations; Negative Accessory Resp Muscle Use
Cardiac: Regular Rhythm and S1/S2
GI: Soft and Nontender
Musculoskeletal: No Edema
Neuro: Awake, Alert and Oriented
Psych: Calm and Intact Judgement/Insight
Data Reviewed
-
Diagnostic Radiology: Report Reviewed by me
Labs: Labs Reviewed by me
--- NOTE | 2025-07-25 10:37 | CM ---
international accounting manager reviewed patient's chart and spoke with patient's daughter Katia today, supportive employment case manager reviewed physical therapy notes with patient's daughter and patient' daughter feels patient is close to baseline, per patient's daughter patient has
been in skilled placement in past. Patient's daughter and family provide 24 hour care in home for patient. Patient is also on Palliative care, and patient's daughter is agreeable to home care and has selected [facility], [facility] liaison has been contacted.
Plan; Home with daughter and VN, patient is currently on Palliative care in home.
[2025-07-25 10:49] LABS: Hematocrit 38.2 % (37.0-47.0); Hemoglobin 13.0 g/dL (12.0-16.0); Mean Corp Hgb Conc. 34.0 g/dL (33.0-37.0); Mean Corpuscular Volume 81.6 fL (81.0-99.0); Platelet Count 278 10^3/uL (130-400); Red Cell Dist. Width 13.6 % (11.5-14.5)
[2025-07-25 11:13] LABS: Blood Urea Nitrogen 11 mg/dl (7-17); Calcium 9.2 mg/dl (8.4-10.2); Carbon Dioxide 26 mmol/L (22-30); Chloride 108 mmol/L (98-107); Estimated Creatinine Clearance 61 ml/min; Glucose 115 mg/dl (70-99); Magnesium 1.7 mg/dl (1.6-2.3); Potassium 3.7 mmol/L (3.5-5.1); Sodium 141 mmol/L (135-145); eGFR > 60.00
--- NOTE | 2025-07-25 11:18 | VNURNOTE ---
Home Health Liaison spoke with patient's daughter Katia to discuss [facility] nurse/therapy, visits, schedule and homebound status. Daughter is agreeable and understands that visits at home will be 2-3 x per week to assess and teach medical management.
Daughter is aware that [facility] will contact them for start of care within a week after discharge from .
PM [facility] referral completed in [facility].
[2025-07-25] MEDS: NSS (PRESERVATIVE FREE) 8 ML IV (11:20)
[2025-07-25] MEDS: PEPCID 20 MG IV (11:20)
--- NOTE | 2025-07-25 13:28 | TRANSFER ---
Patient enhanced precautions discontinued due to negative clostridium difficile and other stool series being negative.
[2025-07-25 15:42] VITALS: BP 128/62
[2025-07-25 20:53] VITALS: BP 132/70
[2025-07-25] MEDS: ZYRTEC 10 MG PO (20:55)
[2025-07-25] MEDS: PRAVACHOL 40 MG PO (20:55)
[2025-07-25 23:23] VITALS: BP 138/68
--- NOTE | 2025-07-26 06:41 | W.DCSUMMARY ---
Discharge Summary
Discharge Data
Date of Admission: 07/23/25
Date of Discharge: 07/26/25
-
Pending Results: No
Hospital Course
Discharging Physician : Dr. Ashley Tinoco
Disposition : Home with Home Health
Primary care physician : Dr. Antonio Mahmood
Principal Discharge diagnosis : Gastroenteritis
Hospital Course :
Ms. Rebecca Wagner is a 85 yo woman with hx dementia, lung cancer on palliative care, VTE on Eliquis, GERD, essential HTN presents to the ER with weakness and diarrhea.
In the emergency department patient was afebrile, blood pressure was 122/60 with a pulse of 91 and he was satting 96% on room air. Chest x-ray was clear. CBC shows a white count of 14.5 but otherwise hemoglobin 14.1 and plate count of 311.
Electrolytes BUN/creatinine were in the normal range. Lipase was negative LFTs were unremarkable. CT of the abdomen pelvis shows known bilateral lower lobe masses and no acute intra-abdominal process.
Patient was admitted for symptomatic treatment of gastroenteritis. She was given IVF. She slowly improved, tolerating a regular (low lactose) diet prior to discharge.
She worked with PT and SNF recommended but patient and daughter prefer for her to go home.
Time spent on discharge was 31 minutes.
Important imaging findings :
Abdomen/Pelvis CT 07/23/25
IMPRESSION: No acute pathology of the abdomen and pelvis identified.
Known bilateral lower lobe pulmonary masses. Stable
Moderate retrocrural lymphadenopathy. Stable
Bilateral too small to characterize hypodense renal lesions likely benign cysts.
Simple right renal cyst. Stable
Moderate atherosclerotic vascular disease. Stable
Procedure findings :
Discharge Plan
-
Patient Disposition: Home with Home Care
Discharge Diagnosis/Procedures: Gastroenteritis
Diet: Regular
Additional Diets: Avoid lactose over the next week while recovering from gastroenteritis
Activity: As tolerated
Driving Restrictions: No driving
Bathing Restrictions: None
Other Services: VN, PT and OT
Referrals:
Antonio Mahmood CRNP [Family Provider, General] - in less than 1 week
Prescriptions:
Continued
cholecalciferol (vitamin D3) [Vitamin D3] 25 mcg (1,000 unit) Tablet
50 mcg PO DAILY Qty: 0
calcium citrate 200 mg (950 mg) Tablet
200 mg PO DAILY Qty: 0
pravastatin 40 mg tablet
40 mg PO HS
multivitamin Tablet
1 tab PO DAILY
amlodipine 5 mg tablet
5 mg PO DAILY
donepezil 5 mg Tablet
5 mg PO DAILY
cetirizine [Zyrtec] 10 mg Tablet
10 mg PO HS
azelastine 137 mcg (0.1 %) [place],Non-Aerosol
2 spray INTRANASAL BID
Rx Instructions:
both nares
fluticasone propionate 50 mcg/actuation [place],Suspension
1 spray INTRANASAL DAILY
Rx Instructions:
both nares
omeprazole 20 mg Tablet,Delayed Release (Dr/Ec)
20 mg PO DAILY
Rx Instructions:
30 mins prior to breakfast
Eliquis 5 mg tablet
5 mg PO BID Qty: 240 0RF
acetaminophen 500 mg Tablet
500 mg PO Q6H PRN (Reason: pain)
losartan 25 mg Tablet
25 mg PO BID
Discharge Orders:
Discharge Patient (As Directed); Ordered 07/26/25
Ordered By: Ashley Tinoco
Discharge Date and Time
Print Language: MALAGASY
[2025-07-26 07:45] VITALS: BP 137/67
[2025-07-26] MEDS: ARICEPT 5 MG PO (09:11)
[2025-07-26] MEDS: PROTONIX 40 MG PO (09:12)
[2025-07-26] MEDS: ELIQUIS 5 MG PO (09:12)
[2025-07-26] MEDS: COZAAR 25 MG PO (09:15)
[2025-07-26] MEDS: NORVASC 5 MG PO (09:15)
--- NOTE | 2025-07-26 10:35 | W.PN.HOSP.TC ---
Today's Communication/Plan
-
patient is ready for discharge today
Assessment / Plan
Assessment / Plan
84-year-old female with past medical history significant for lung cancer, dementia, pulmonary embolism, GERD and hypertension presenting to the emergency department with acute episode of diarrhea x 1 day. Multiple loose watery stools. Found to
have leukocytosis, CT without acute pathology. C. Diff negative
CT of the abdomen and pelvis-no acute pathology. Known bilateral lower lobe pulmonary mass. Moderate retrocrural lymphadenopathy. Bilateral too small to characterize hypodense renal lesions likely cyst. Simple right renal cyst. Moderate
atherosclerotic vascular disease, stable
Echo 03/22/2024-normal biventricular size and systolic function. Moderate TR. PA pressure 35 to 40 mmHg
Acute Gastroenteritis
-C. Diff negative, stool cultures negative
-overall clinically improved - now tolerating regular diet
-change to low lactose diet
-OK for DC today
# Acute kidney injury
-responsive to IVF, fluids now stopped
# History of pulmonary embolism-continue Eliquis
# Hypertension-continue Losartan, Amlodipine
# Hyperlipidemia-continue statin
# History of non-small cell lung cancer not on treatment -followed by palliative care .Diagnosed in March 2025
# COPD-continue as needed treatments
# Dementia-continue Aricept
# GERD-continue PPI
# Ex-smoker
# DVT prophylaxis-Eliquis
# DNR
Anticipated Discharge: Today
Subjective/Interval History
-
Date of Service: July 26, 2025
feeling well
eating and drinking OK
no further vomiting/diarrhea
Objective Data
-
Vital Signs:
Vital Signs
Temp Pulse Resp BP Pulse Ox
97.8 F 67 16 137/67 95
07/26/25 07:45 07/26/25 09:15 07/26/25 07:45 07/26/25 09:15 07/26/25 07:45
I&O
07/25/25 07/26/25 07/27/25
06:59 06:59 06:59
Intake Total 1200 / 1200 1020 / 1020
Balance 1200 / 1200 1020 / 1020
Review of Systems
-
History Source: Patient
All other systems: Reviewed and negative
Physical Exam
-
General: No Apparent Distress
HEENT: Normocephalic and Atraumatic
Respiratory: Clear to Auscultation and Non Labored Respirations; Negative Accessory Resp Muscle Use
Cardiac: Regular Rhythm and S1/S2
GI: Soft and Nontender
Musculoskeletal: No Edema
Neuro: Awake, Alert and Oriented
Psych: Calm and Intact Judgement/Insight
Data Reviewed
-
Diagnostic Radiology: Report Reviewed by me
Labs: Labs Reviewed by me
--- NOTE | 2025-07-26 10:37 | W.DS.TRANS ---
DC Summary - Track Worker
-
Discharge Instructions:
Discharge Diagnosis/Procedures Gastroenteritis
Diet Regular
Additional Diets Avoid lactose over the next week while
recovering from gastroenteritis
Activity As tolerated
Driving Restrictions No driving
Bathing Restrictions None
Other Services VN,PT,OT
Instructions:
Stand-Alone Forms:
Changes to Home Medications: No
Discharge Medications:
DC Medications w/original date entered in [facility]
calcium citrate 200 mg PO DAILY Supplement ##0 09/08/23
cholecalciferol (vitamin D3) 25 mcg (1,000 unit) tablet (Vitamin D3) 50 mcg PO DAILY Supplement ##0 09/08/23
amlodipine 5 mg tablet 5 mg PO DAILY Blood Pressure 11/17/23
multivitamin 1 tab PO DAILY Supplement 11/17/23
pravastatin 40 mg tablet 40 mg PO HS High Cholesterol 11/17/23
azelastine 137 mcg (0.1 %) nasal spray 2 spray intranasal BID 11/30/24
cetirizine 10 mg tablet (Zyrtec) 10 mg PO HS 11/30/24
donepezil 5 mg tablet 5 mg PO DAILY 11/30/24
fluticasone propionate 50 mcg/actuation nasal spray,suspension 1 spray intranasal DAILY 11/30/24
omeprazole 20 mg tablet,delayed release 20 mg PO DAILY 11/30/24
apixaban 5 mg tablet (Eliquis) 5 mg PO BID #240 tabs 12/03/24
acetaminophen 500 mg tablet 500 mg PO Q6H PRN pain 04/28/25
losartan 25 mg tablet 25 mg PO BID 04/28/25
Home Medication Changes
Pending Results: No
--- NOTE | 2025-07-26 11:15 | CM ---
Patient is for discharge today, plan is to home with family support and [facility] and Palliative care. Daughter to transport at 12:30 today.
Plan; Home today with [facility] and Pallative at 12:30.
--- NOTE | 2025-07-26 13:01 | PTCARENOTE ---
Patient discharged to home with daughter. Discharge instructions reviewed, by this RN with patient and daughter. IV removed. All belongings accounted for. Transported via wheelchair to [facility].
== END 2025-07-26 13:28 | disposition home health service (06) ==
LOC: 4 WEST ACU 19:49
PROVIDERS: Physician Assistant; ADMITTING PHYSICIAN Internal Medicine; ATTENDING PHYSICIAN Student in an Organized Health Care Education/Training Program; EMERGENCY PHYSICIAN Emergency Medicine; FAMILY PHYSICIAN Nurse Practitioner Family
DX: K52.9 Noninfective gastroenteritis and colitis, unspecified (principal); R10.9 Unspecified abdominal pain; R41.89 Other symptoms and signs involving cognitive functions and awareness; R05.8 Other specified cough; K21.9 Gastro-esophageal reflux disease without esophagitis; E78.00 Pure hypercholesterolemia, unspecified; I10 Essential (primary) hypertension; E86.0 Dehydration; N17.9 Acute kidney failure, unspecified; M25.78 Osteophyte, vertebrae; I70.0 Atherosclerosis of aorta; R59.1 Generalized enlarged lymph nodes; N28.1 Cyst of kidney, acquired; I70.90 Unspecified atherosclerosis; R41.0 Disorientation, unspecified; J43.9 Emphysema, unspecified; F03.90 Unspecified dementia, unspecified severity, without behavioral disturbance, psychotic disturbance, mood disturbance, and anxiety; Z66 Do not resuscitate; Z79.01 Long term (current) use of anticoagulants; Z79.899 Other long term (current) drug therapy; Z88.2 Allergy status to sulfonamides; Z88.5 Allergy status to narcotic agent; Z85.118 Personal history of other malignant neoplasm of bronchus and lung; Z86.718 Personal history of other venous thrombosis and embolism; Z87.891 Personal history of nicotine dependence; Z85.51 Personal history of malignant neoplasm of bladder; Z86.711 Personal history of pulmonary embolism; Z11.52 Encounter for screening for COVID-19
CPT/HCPCS: 71046; 74177; 80048; 80053; 83690; 83735; 83880; 85025; 85027; 87045; 87046; 87077; 87324; 87427; 87449; 87811; 96360; 97163; 97166; 99285; G0378; Q9967